=== PATIENT | male | born 1950 | race Caucasian/White ===

== ENCOUNTER 2016-12-10 23:04 | Emergency (ER) | payer MEDICAID ==
[~2016-12-10] VITALS: Ht 175.3 cm; Wt 77.1 kg
[2016-12-10 23:05] VITALS: BP 126/78; PULSE 76; RESP 22; TEMP 98.4; O2SAT 98
--- NOTE | 2016-12-10 23:07 | NUR ---
Patient to ER bed 3 to gown for evaluation. Side rails up. Report given to GONZALEZ CAMPBELL.
--- NOTE | 2016-12-10 23:12 | NUR ---
Patient states the started to have chest pressure radiating to left shoulder starting today with shortness of breath. Pain 8/10. Lungs are clear. No other complaints/injuries noted or per patient.
--- NOTE | 2016-12-10 23:37 | NUR ---
Dr. Payne at bedside
[2016-12-10] MEDS ORDERED: MORPHINE 4 MG/ML INJ. SYRINGE IVP ONE (23:45)
[2016-12-10] MEDS ORDERED: ASPIRIN 325 MG TABLET PO ONE (23:45)
[2016-12-10 23:50] LABS: HEMOGLOBIN 12.1 g/dL (14.0-18.0); MEAN CORPUSCULAR VOLUME 85 fL (79.0-98.0)
--- NOTE | 2016-12-10 23:50 | NUR ---
Note yris in EDM - 12/11/16 at 0141 by [email or web address] Patient states the started to have chest pressure radiating to left shoulder starting today with shortness of breath. Pain 02/28. Lungs are clear. No other complaints/injuries noted or per patient.
[2016-12-10 23:57] LABS: CALCIUM 9.1 mg/dL (8.4-11.0); CREATININE 1.13 mg/dL (0.55-1.30); POTASSIUM 3.8 mmol/L (3.5-5.1)
[2016-12-10 23:59] LABS: INR 1.1 (0.80-1.20)
[2016-12-11 00:03] LABS: ALBUMIN 4.2 g/dL (3.4-4.8); TOTAL BILIRUBIN 0.7 mg/dL (0.0-1.0); TOTAL PROTEIN, SERUM 7.9 g/dL (6.4-8.3)
[2016-12-11 00:06] LABS: HEMATOCRIT 34.9 % (36-54); MEAN CORPUSCULAR HEMOGLOBIN 30 pg (27-31); MEAN CORPUSCULAR HGB CONC 35 % (32-36); RED BLOOD CELL COUNT(AUTO) 4.11 MIL/uL (4.2-6.2); RED CELL DISTRIBUTION WIDTH 14.2 % (9.0-15.0); WHITE BLOOD COUNT (AUTO) 7.3 K/uL (4.8-10.8)
[2016-12-11] MEDS ORDERED: ONDANSETRON HCL 4 MG/2 ML VIAL IVP ONE (01:15)
[2016-12-11] MEDS ORDERED: HYDROmorphone 1 MG INJ. 1 MG/ML AMPUL IVP ONE (01:15)
[2016-12-11 01:21] LABS: PLATELET COUNT (AUTO) 73 K/uL (130-430)
[2016-12-11 01:22] LABS: BAND % (MANUAL) 5 % (0-6); BASOPHILS % (MANUAL) 0 % (0-2); EOSINOPHILS % (MANUAL) 1 % (0-7); LYMPHOCYTES % (MANUAL) 11 % (20-46); MONOCYTES % (MANUAL) 15 % (0-11)
[2016-12-11 02:09] LABS: BILIRUBIN,URINE NEGATIVE (NEGATIVE); CLARITY/URINE CLEAR (CLEAR); COLOR,URINE YELLOW (YELLOW); GLUCOSE,URINE NEGATIVE (NEGATIVE); KETONES,URINE NEGATIVE (NEGATIVE); LEUKOCYTE ESTERASE ,URINE NEGATIVE (NEGATIVE); NITRITE, URINE NEGATIVE (NEGATIVE); PROTEIN URINE TRACE (NEGATIVE); UROBILINOGEN,URINE 0.2 (0.2-1.0)
[2016-12-11 02:13] LABS: BLOOD, URINE TRACE (NEGATIVE)
[2016-12-11 02:20] LABS: BACTERIA,URINE MODERATE /HPF (None Seen); MUCUS,URINE 1+ /LPF (None Seen); RBC,URINE 0-3 /HPF (0-3); WBC,URINE 0-3 /HPF (0-3)
--- NOTE | 2016-12-11 03:01 | NUR ---
Patient resting quietly. No acute distress noted. Vital signs within normal range.
[2016-12-11 03:45] VITALS: BP 126/64; PULSE 82; RESP 18; TEMP 98.4; O2SAT 98
--- NOTE | 2016-12-11 03:45 | NUR ---
Patient given written and verbal discharge instructions and verbalizes understanding. ER MD discussed with patient the results and treatment provided. Patient in stable condition. ID arm band removed. IV catheter removed intact and dressing applied, no active bleeding. Rx of Prednisone and Percocet given. Patient educated on pain management and to follow up with PMD in 2 days. Pain Scale 0/10 Opportunity for questions provided and answered.
--- NOTE | 2016-12-11 03:45 | NUR ---
Note rosamariaone in EDM - 12/11/16 at 0353 by [email or web address] Patient given written and verbal discharge instructions and verbalizes understanding. ER discussed with patient the results and treatment provided. Patient in stable condition. ID arm band removed. IV catheter removed intact and dressing applied, no active bleeding. Rx of Prednison and Percocet given. Patient educated on pain management and to follow up with PMD in 2 days. Pain Scale 0/10 Opportunity for questions provided and answered.
== END 2016-12-11 03:45 | disposition home or self-care (01) ==
LOC: SED 23:04
DX: M25.512 Pain in left shoulder (principal); M79.89 Other specified soft tissue disorders; R10.31 Right lower quadrant pain; Z94.0 Kidney transplant status
CPT/HCPCS: 36415; 73030; 80053; 81000; 82550; 83605; 83880; 84484; 85007; 85027; 85379; 85610; 87086; 93005; 93971; 96374; 96375; 99285; J1170; J2270; J2405; 85025

== ENCOUNTER 2017-04-28 15:52 | Emergency (ER) | payer MEDICARE, MEDICAID ==
[~2017-04-28] VITALS: Ht 175.3 cm; Wt 77.1 kg
[~2017-04-28 15:52] MED LIST: AMLO5TAB4 PO; CEL250 PO; FERR-57 PO; MAGN400T10 PO; METO-442 PO; PRED1TAB PO; PRO40 PO; SULF1TAB48 PO; TACR1CAP PO; VITD2000 PO
[2017-04-28 15:55] VITALS: BP 132/78; PULSE 63; RESP 20; TEMP 97.8; O2SAT 97
--- NOTE | 2017-04-28 15:58 | NUR ---
Pt placed to ER chair, report given to ADRIAN Ba.
--- NOTE | 2017-04-28 16:10 | NUR ---
PRESENTS FOR RECHECK TO LEFT FINGER LACERATION ON SATURDAY. STITCHES PRESENT AND NO REDNESS, PAIN OR SWELLING NOTED.
--- NOTE | 2017-04-28 16:20 | NUR ---
CHRISTAL Akbar at bedside for exam and eval.
[2017-04-28 16:35] VITALS: BP 120/70; PULSE 78; RESP 16; TEMP 98; O2SAT 97
--- NOTE | 2017-04-28 16:35 | NUR ---
Patient given written and verbal discharge instructions and verbalizes understanding. ER MD discussed with patient the results and treatment provided. Patient in stable condition. ID arm band removed. No Rx given. Patient educated on pain management and to follow up with PMD. Pain Scale 0/10. Opportunity for questions provided and answered. pt discharged to private auto by ambulating.
== END 2017-04-28 16:35 | disposition home or self-care (01) ==
LOC: SED 15:52
DX: S61.213D Laceration without foreign body of left middle finger without damage to nail, subsequent encounter (principal); I10 Essential (primary) hypertension; Z79.899 Other long term (current) drug therapy; W26.0XXD Contact with knife, subsequent encounter; Y92.89 Other specified places as the place of occurrence of the external cause; Y99.8 Other external cause status
CPT/HCPCS: 99281

== ENCOUNTER 2017-05-05 15:15 | Emergency (ER) | payer MEDICARE, MEDICAID ==
[~2017-05-05] VITALS: Ht 175.3 cm; Wt 77.1 kg
[2017-05-05 15:30] VITALS: BP_SYST 120
[2017-05-05] MEDS ORDERED: BACITRACIN 1 GM OINT TP ONE ×2 (15:37→15:45)
[2017-05-05 15:52] VITALS: BP_SYST 120
== END 2017-05-05 15:52 | disposition home or self-care (01) ==
LOC: SED 15:15
DX: S61.211D Laceration without foreign body of left index finger without damage to nail, subsequent encounter (principal); I12.0 Hypertensive chronic kidney disease with stage 5 chronic kidney disease or end stage renal disease; N18.6 End stage renal disease; Z79.899 Other long term (current) drug therapy; Z94.0 Kidney transplant status; X58.XXXD Exposure to other specified factors, subsequent encounter
CPT/HCPCS: 99283

== ENCOUNTER 2018-07-10 12:30 | Inpatient (IN) | payer MEDICARE, MEDICAID ==
[~2018-07-10] VITALS: Ht 175.3 cm; Wt 84.4 kg
[2018-07-10 12:30] VITALS: BP_SYST 124
[2018-07-10 14:05] LABS: HEMATOCRIT 25.5 % (36-54); MEAN CORPUSCULAR HEMOGLOBIN 30 pg (27-31); MEAN CORPUSCULAR HGB CONC 35 % (32-36); MEAN CORPUSCULAR VOLUME 84 fL (79.0-98.0); PLATELET COUNT (AUTO) 97 K/uL (130-430); RED BLOOD CELL COUNT(AUTO) 3.03 MIL/uL (4.2-6.2); RED CELL DISTRIBUTION WIDTH 16.2 % (9.0-15.0); WHITE BLOOD COUNT (AUTO) 7.5 K/uL (4.8-10.8)
[2018-07-10 14:12] LABS: CALCIUM 7.2 mg/dL (8.4-11.0); CREATININE 1.57 mg/dL (0.55-1.30); POTASSIUM 3.7 mmol/L (3.5-5.1)
[2018-07-10 14:20] LABS: ALBUMIN 3.1 g/dL (3.4-4.8); TOTAL BILIRUBIN 0.7 mg/dL (0.0-1.0)
[2018-07-10 14:25] LABS: INR 3.9 (0.80-1.20); PROTHROMBIN TIME 37.6 SECS (9.5-12.5)
[2018-07-10 14:47] LABS: BAND % (MANUAL) 7 % (0-6); BASOPHILS % (MANUAL) 0 % (0-2); EOSINOPHILS % (MANUAL) 0 % (0-7); LYMPHOCYTES % (MANUAL) 5 % (20-46); MONOCYTES % (MANUAL) 29 % (0-11)
[2018-07-10 14:48] LABS: METAMYELOCYTES % 3 % (0-0)
[2018-07-10] MEDS ORDERED: LIDOCAINE JELLY 5 ML TUBE MM ONE (15:15)
[2018-07-10] MEDS ORDERED: fentaNYL CITRATE/PF 100 MCG/2 ML AMP IVP ONE (15:15)
[2018-07-10 16:00] VITALS: BP_SYST 113
[2018-07-10] MEDS ORDERED: BENZ-16 PO (16:11)
[2018-07-10] MEDS ORDERED: SEN30 PO (16:11)
[2018-07-10] MEDS ORDERED: COU5 PO (16:11)
[2018-07-10] MEDS ORDERED: FLEC50TA2 PO (16:11)
[2018-07-10] MEDS ORDERED: POTA10TA15 PO (16:11)
[2018-07-10] MEDS ORDERED: SPIR25TA6 PO (16:11)
[2018-07-10] MEDS ORDERED: MIRT15TA7 PO (16:11)
[2018-07-10] MEDS ORDERED: CEL250 PO (16:17)
[2018-07-10] MEDS ORDERED: MYCO500T PO (16:17)
[2018-07-10 16:46] LABS: BILIRUBIN,URINE NEGATIVE (NEGATIVE); CLARITY/URINE CLEAR (CLEAR); COLOR,URINE YELLOW (YELLOW); GLUCOSE,URINE NEGATIVE (NEGATIVE); KETONES,URINE NEGATIVE (NEGATIVE); LEUKOCYTE ESTERASE ,URINE NEGATIVE (NEGATIVE); NITRITE, URINE NEGATIVE (NEGATIVE); PH,URINE 5.5 (5.0-8.0); PROTEIN URINE TRACE (NEGATIVE); UROBILINOGEN,URINE 0.2 (0.2-1.0)
[2018-07-10 16:47] LABS: BLOOD, URINE TRACE (NEGATIVE)
[2018-07-10 16:48] VITALS: BP_SYST 113
[2018-07-10 16:53] LABS: WBC,URINE 0-3 /HPF (0-3)
[2018-07-10 16:54] LABS: BACTERIA,URINE MODERATE /HPF (None Seen)
[2018-07-10] MEDS: NACL 0.9% 1,000 ML IV SCH (17:05)
[2018-07-10] MEDS ORDERED: FUROSEMIDE 20 MG/2 ML VIAL IVP ONE (18:30)
[2018-07-10 19:20] LABS: CALCIUM 7.1 mg/dL (8.4-11.0); CREATININE 1.6 mg/dL (0.55-1.30); POTASSIUM 3.7 mmol/L (3.5-5.1)
[2018-07-10] MEDS: LORazepam 1 MG TABLET PO PRN (20:24)
[2018-07-10 20:30] VITALS: BP_SYST 104
[2018-07-10] MEDS: BENZONATATE 100 MG CAPSULE (TESSALON) PO SCH (21:38)
[2018-07-10] MEDS: MIRTAZAPINE 15 MG TABLET PO SCH (21:38)
[2018-07-10] MEDS: MAGNESIUM OXIDE 400 MG TABLET PO SCH (21:38)
[2018-07-10] MEDS: POTASSIUM CHLORIDE 10 MEQ TAB.PRT.SR PO SCH (21:39)
[2018-07-10] MEDS: FUROSEMIDE 20 MG/2 ML VIAL IVP SCH (21:39)
[2018-07-10] MEDS: MYCOPHENOLATE MOFETIL 250 MG CAPSULE PO SCH (21:39)
[2018-07-10] MEDS: TACROLIMUS ANHYDROUS 1 MG CAPSULE (PROGRAF) PO SCH (21:40)
[2018-07-10 22:00] VITALS: BP_SYST 104
[2018-07-10] MEDS: ALBUTEROL SULFATE 0.083% 2.5 MG/3 ML VIAL.NEB INH PRN (22:59)
[2018-07-10 23:09] VITALS: BP_SYST 119
[2018-07-10] MEDS: TEMAZEPAM 15 MG CAPSULE PO PRN (23:20)
[2018-07-10] MEDS: ACETAMINOPHEN 325 MG TABLET PO PRN (23:20)
[2018-07-11] MEDS: ALBUTEROL SULFATE 0.083% 2.5 MG/3 ML VIAL.NEB INH PRN ×5 (02:17→19:48)
[2018-07-11] MEDS: MORPHINE 4 MG/ML INJ. SYRINGE IVP PRN (03:06)
[2018-07-11] MEDS: FUROSEMIDE 20 MG/2 ML VIAL IVP SCH ×3 (04:47→20:00)
[2018-07-11 04:54] VITALS: BP_SYST 132
[2018-07-11] MEDS: ACETAMINOPHEN 325 MG TABLET PO PRN ×2 (05:03→09:58)
[2018-07-11] MEDS: predniSONE 1 MG TABLET PO SCH (06:35)
[2018-07-11 07:44] LABS: HEMATOCRIT 26.8 % (36-54); HEMOGLOBIN 8.9 g/dL (14.0-18.0); MEAN CORPUSCULAR HEMOGLOBIN 29 pg (27-31); MEAN CORPUSCULAR HGB CONC 33 % (32-36); MEAN CORPUSCULAR VOLUME 86 fL (79.0-98.0); PLATELET COUNT (AUTO) 90 K/uL (130-430); RED CELL DISTRIBUTION WIDTH 15.8 % (9.0-15.0)
[2018-07-11 07:48] LABS: ALBUMIN 2.8 g/dL (3.4-4.8); CREATININE 1.43 mg/dL (0.55-1.30); POTASSIUM 3.7 mmol/L (3.5-5.1)
[2018-07-11 07:51] LABS: CALCIUM 6.9 mg/dL (8.4-11.0)
[2018-07-11] MEDS: TACROLIMUS ANHYDROUS 1 MG CAPSULE (PROGRAF) PO SCH ×2 (08:02→22:03)
[2018-07-11] MEDS: MYCOPHENOLATE MOFETIL 250 MG CAPSULE PO SCH ×2 (08:03→17:02)
[2018-07-11] MEDS: amLODIPine BESYLATE 5 MG TABLET PO SCH (08:05)
[2018-07-11] MEDS: MAGNESIUM OXIDE 400 MG TABLET PO SCH ×2 (08:05→20:46)
[2018-07-11] MEDS: CINACALCET HCL 30 MG TABLET PO SCH (08:05)
[2018-07-11] MEDS: METOPROLOL TARTRATE 50 MG TABLET PO SCH (08:06)
[2018-07-11] MEDS: POTASSIUM CHLORIDE 10 MEQ TAB.PRT.SR PO SCH ×2 (08:06→20:46)
[2018-07-11] MEDS: BENZONATATE 100 MG CAPSULE (TESSALON) PO SCH ×3 (08:07→20:46)
[2018-07-11] MEDS: SPIRONOLACTONE 25 MG TABLET (ALDACTONE) PO SCH (08:07)
[2018-07-11] MEDS: FLECAINIDE ACETATE 50 MG TABLET (TAMBOCOR) PO SCH (08:18)
[2018-07-11] MEDS: NACL 0.9% 1,000 ML IV SCH (08:19)
[2018-07-11 08:20] LABS: WHITE BLOOD COUNT (AUTO) 11.4 K/uL (4.8-10.8)
[2018-07-11] MEDS ORDERED: PANTOPRAZOLE SODIUM 40 MG TAB PO SCH (09:00)
[2018-07-11 10:14] LABS: ATYPICAL LYMPHOCYTES % 0 % (0-0); BAND % (MANUAL) 15 % (0-6); BASOPHILS % (MANUAL) 0 % (0-2); EOSINOPHILS % (MANUAL) 0 % (0-7); LYMPHOCYTES % (MANUAL) 11 % (20-46); MONOCYTES % (MANUAL) 26 % (0-11)
[2018-07-11 20:00] VITALS: BP_SYST 142
[2018-07-11] MEDS ORDERED: IPRATROPIUM/ALBUTEROL SULFATE 3 ML AMPUL.NEB (DUONEB) INH PRN (20:00)
[2018-07-11] MEDS ORDERED: FUROSEMIDE 20 MG/2 ML VIAL IVP ONE (20:00)
[2018-07-11] MEDS ORDERED: cefTRIAXone 1 GM in D5W 50 ML IV SCH ×2 (20:00→21:00)
[2018-07-11] MEDS ORDERED: MAGNESIUM SULFATE 50 ML IV ONE (20:00)
[2018-07-11] MEDS ORDERED: AZITHROMYCIN 500 MG in NS 250 ML IV SCH (20:15)
[2018-07-11] MEDS ORDERED: methylPREDNISolone SOD SUCC 40 MG/ML VIAL IVP SCH (20:30)
[2018-07-11] MEDS ORDERED: FUROSEMIDE 20 MG/2 ML VIAL IVP SCH (20:30)
[2018-07-11] MEDS ORDERED: MAGNESIUM SULFATE 50 ML IV SCH (20:30)
[2018-07-11] MEDS ORDERED: cefTRIAXone 1 GM VIAL ONE (20:39)
[2018-07-11] MEDS ORDERED: AZITHROMYCIN 500 MG/VIAL (ZITHROMAX) IV ONE (20:40)
[2018-07-11] MEDS ORDERED: FUROSEMIDE 40 MG/4 ML VIAL IVP SCH (20:45)
[2018-07-11] MEDS: MIRTAZAPINE 15 MG TABLET PO SCH (20:46)
[2018-07-11] MEDS: AZITHROMYCIN 500 MG in NS 250 ML IV SCH (21:00)
[2018-07-11] MEDS: TEMAZEPAM 15 MG CAPSULE PO PRN (22:16)
[2018-07-12] VITALS (18 sets, daily range): BP systolic 109–151
[2018-07-12] MEDS: IPRATROPIUM/ALBUTEROL SULFATE 3 ML AMPUL.NEB (DUONEB) INH PRN ×2 (00:59→21:27)
[2018-07-12] MEDS: LORazepam 1 MG TABLET PO PRN (01:14)
[2018-07-12] MEDS: FUROSEMIDE 20 MG/2 ML VIAL IVP SCH (02:54)
[2018-07-12] MEDS: LORazepam 2 MG/ML VIAL IVP PRN (06:00)
[2018-07-12] MEDS: predniSONE 1 MG TABLET PO SCH (06:00)
[2018-07-12] MEDS: methylPREDNISolone SOD SUCC 40 MG/ML VIAL IVP SCH ×3 (08:18→21:16)
[2018-07-12 08:52] LABS: CALCIUM 7.4 mg/dL (8.4-11.0); CREATININE 1.59 mg/dL (0.55-1.30); POTASSIUM 4.3 mmol/L (3.5-5.1)
[2018-07-12 08:54] LABS: HEMATOCRIT 28.6 % (36-54); HEMOGLOBIN 9.2 g/dL (14.0-18.0); LYMPHOCYTES # (AUTO) 0.4 K/uL (1.0-5.5); LYMPHOCYTES % (AUTO) 2.6 % (20.5-51.5); MEAN CORPUSCULAR HEMOGLOBIN 28 pg (27-31); MEAN CORPUSCULAR HGB CONC 32 % (32-36); MEAN CORPUSCULAR VOLUME 87 fL (79.0-98.0); MONOCYTES # (AUTO) 0.7 K/uL (0.0-1.0); MONOCYTES % (AUTO) 4.8 % (1.7-9.3); NEUTROPHILS # (AUTO) 14.2 K/uL (1.8-7.7); PLATELET COUNT (AUTO) 92 K/uL (130-430); RED CELL DISTRIBUTION WIDTH 16.2 % (9.0-15.0); WHITE BLOOD COUNT (AUTO) 15.3 K/uL (4.8-10.8)
[2018-07-12] MEDS: SPIRONOLACTONE 25 MG TABLET (ALDACTONE) PO SCH (09:00)
[2018-07-12] MEDS ORDERED: NACL 0.9% 1,000 ML IV SCH (09:00)
[2018-07-12 09:14] LABS: PROTHROMBIN TIME 55.3 SECS (9.5-12.5)
[2018-07-12 09:15] LABS: INR 5.8 (0.80-1.20)
[2018-07-12] MEDS ORDERED: PANTOPRAZOLE SODIUM 40 MG/VIAL (PROTONIX) IVP ONE (09:15)
[2018-07-12] MEDS: CEFEPIME 1 GM in D5W 50 ML IV SCH ×2 (10:01→10:32)
[2018-07-12] MEDS ORDERED: SODIUM BICARBONATE 8.4% JECT 50 MEQ/50 ML SYRINGE ONE (10:28)
[2018-07-12] MEDS ORDERED: SODIUM BICARBONATE 8.4% JECT 50 MEQ/50 ML SYRINGE IVP ONE (10:30)
[2018-07-12] MEDS: PANTOPRAZOLE SODIUM 40 MG/VIAL (PROTONIX) IVP SCH (10:35)
[2018-07-12] MEDS: FLECAINIDE ACETATE 50 MG TABLET (TAMBOCOR) PO SCH (11:14)
[2018-07-12] MEDS: MAGNESIUM OXIDE 400 MG TABLET PO SCH ×2 (11:14→21:16)
[2018-07-12] MEDS: BENZONATATE 100 MG CAPSULE (TESSALON) PO SCH ×3 (11:14→21:16)
[2018-07-12] MEDS: POTASSIUM CHLORIDE 10 MEQ TAB.PRT.SR PO SCH ×2 (11:14→21:16)
[2018-07-12] MEDS: METOPROLOL TARTRATE 50 MG TABLET PO SCH (11:15)
[2018-07-12] MEDS: amLODIPine BESYLATE 5 MG TABLET PO SCH (11:15)
[2018-07-12] MEDS: MYCOPHENOLATE MOFETIL 250 MG CAPSULE PO SCH (11:18)
[2018-07-12] MEDS ORDERED: SODIUM BICARBONATE IV SCH (11:30)
[2018-07-12] MEDS ORDERED: NACL 0.45% IV SCH (11:30)
[2018-07-12 11:58] LABS: NEUTROPHILS % (AUTO) 92.6 % (40.0-70.0)
[2018-07-12] MEDS: TACROLIMUS ANHYDROUS 1 MG CAPSULE (PROGRAF) PO SCH ×2 (12:02→21:18)
[2018-07-12] MEDS: CINACALCET HCL 30 MG TABLET PO SCH (12:02)
[2018-07-12] MEDS ORDERED: BUMEX 1 MG/4 ML VIAL IVP ONE (12:30)
[2018-07-12 13:11] LABS: CREATININE 1.44 mg/dL (0.55-1.30); POTASSIUM 3.3 mmol/L (3.5-5.1)
[2018-07-12 13:16] LABS: CALCIUM 6.3 mg/dL (8.4-11.0)
[2018-07-12] MEDS ORDERED: CALCIUM GLUCONATE 1 GM/10 ML VIAL ONE (13:26)
[2018-07-12] MEDS: SODIUM BICARBONATE IV SCH (13:26)
[2018-07-12] MEDS: NACL 0.45% IV SCH (13:26)
[2018-07-12] MEDS ORDERED: CALCIUM GLUCONATE 1 GM in NS 100 ML IV ONE (14:15)
[2018-07-12] MEDS: AZITHROMYCIN 500 MG in NS 250 ML IV SCH (21:16)
[2018-07-12] MEDS: MIRTAZAPINE 15 MG TABLET PO SCH (21:16)
[2018-07-12] MEDS: BUMETANIDE 0.25 MG/ML; 10 ML VIAL IVP SCH (21:33)
[2018-07-13] VITALS (25 sets, daily range): BP systolic 104–136
[2018-07-13] MEDS: LORazepam 2 MG/ML VIAL IVP PRN (01:19)
[2018-07-13] MEDS: IPRATROPIUM/ALBUTEROL SULFATE 3 ML AMPUL.NEB (DUONEB) INH PRN ×3 (01:23→23:21)
[2018-07-13] MEDS: MORPHINE 4 MG/ML INJ. SYRINGE IVP PRN ×2 (04:32→09:24)
[2018-07-13 08:15] LABS: ALBUMIN 2.8 g/dL (3.4-4.8); CALCIUM 7.5 mg/dL (8.4-11.0); CREATININE 1.57 mg/dL (0.55-1.30); POTASSIUM 3.8 mmol/L (3.5-5.1); TOTAL BILIRUBIN 0.7 mg/dL (0.0-1.0)
[2018-07-13] MEDS: methylPREDNISolone SOD SUCC 40 MG/ML VIAL IVP SCH ×2 (08:38→20:38)
[2018-07-13] MEDS: CEFEPIME 1 GM in D5W 50 ML IV SCH ×2 (08:38→20:37)
[2018-07-13] MEDS: PANTOPRAZOLE SODIUM 40 MG/VIAL (PROTONIX) IVP SCH (08:38)
[2018-07-13] MEDS: BUMETANIDE 0.25 MG/ML; 10 ML VIAL IVP SCH ×2 (08:40→20:41)
[2018-07-13] MEDS: FLECAINIDE ACETATE 50 MG TABLET (TAMBOCOR) PO SCH (08:41)
[2018-07-13] MEDS: MAGNESIUM OXIDE 400 MG TABLET PO SCH ×2 (08:41→20:40)
[2018-07-13] MEDS: SPIRONOLACTONE 25 MG TABLET (ALDACTONE) PO SCH (08:41)
[2018-07-13] MEDS: BENZONATATE 100 MG CAPSULE (TESSALON) PO SCH ×3 (08:42→20:39)
[2018-07-13] MEDS: amLODIPine BESYLATE 5 MG TABLET PO SCH (08:42)
[2018-07-13] MEDS: METOPROLOL TARTRATE 50 MG TABLET PO SCH (08:42)
[2018-07-13] MEDS: POTASSIUM CHLORIDE 10 MEQ TAB.PRT.SR PO SCH ×2 (08:44→20:39)
[2018-07-13 08:53] LABS: BASOPHILS % (AUTO) 0.2 % (0.0-2.0); EOSINOPHILS % (AUTO) 0.1 % (0.0-4.0); HEMATOCRIT 23.7 % (36-54); HEMOGLOBIN 8.5 g/dL (14.0-18.0); LYMPHOCYTES # (AUTO) 0.2 K/uL (1.0-5.5); LYMPHOCYTES % (AUTO) 1.8 % (20.5-51.5); MEAN CORPUSCULAR HEMOGLOBIN 30 pg (27-31); MEAN CORPUSCULAR HGB CONC 36 % (32-36); MEAN CORPUSCULAR VOLUME 85 fL (79.0-98.0); MONOCYTES # (AUTO) 2.3 K/uL (0.0-1.0); MONOCYTES % (AUTO) 18.6 % (1.7-9.3); NEUTROPHILS # (AUTO) 9.8 K/uL (1.8-7.7); PLATELET COUNT (AUTO) 103 K/uL (130-430); RED BLOOD CELL COUNT(AUTO) 2.79 MIL/uL (4.2-6.2); RED CELL DISTRIBUTION WIDTH 16.4 % (9.0-15.0); WHITE BLOOD COUNT (AUTO) 12.3 K/uL (4.8-10.8)
[2018-07-13] MEDS: CINACALCET HCL 30 MG TABLET PO SCH (09:12)
[2018-07-13] MEDS: TACROLIMUS ANHYDROUS 1 MG CAPSULE (PROGRAF) PO SCH ×2 (09:13→20:39)
[2018-07-13] MEDS: SODIUM BICARBONATE IV SCH (09:13)
[2018-07-13] MEDS: NACL 0.45% IV SCH (09:13)
[2018-07-13 12:13] LABS: NEUTROPHILS % (AUTO) 79.3 % (40.0-70.0)
[2018-07-13] MEDS: AZITHROMYCIN 500 MG in NS 250 ML IV SCH (20:37)
[2018-07-13] MEDS: MIRTAZAPINE 15 MG TABLET PO SCH (20:39)
[2018-07-13 23:19] LABS: BILIRUBIN,URINE NEGATIVE (NEGATIVE); BLOOD, URINE 3+ (NEGATIVE); CLARITY/URINE CLEAR (CLEAR); COLOR,URINE YELLOW (YELLOW); GLUCOSE,URINE NEGATIVE (NEGATIVE); KETONES,URINE NEGATIVE (NEGATIVE); LEUKOCYTE ESTERASE ,URINE TRACE (NEGATIVE); NITRITE, URINE NEGATIVE (NEGATIVE); PH,URINE 5.5 (5.0-8.0); PROTEIN URINE 1+ (NEGATIVE); UROBILINOGEN,URINE 0.2 (0.2-1.0)
[2018-07-13 23:26] LABS: RBC,URINE >100 /HPF (0-3)
[2018-07-13 23:27] LABS: BACTERIA,URINE FEW /HPF (None Seen)
[2018-07-13] MEDS: ACETAMINOPHEN 325 MG TABLET PO PRN (23:41)
[2018-07-13] MEDS: TEMAZEPAM 15 MG CAPSULE PO PRN (23:41)
[2018-07-14] VITALS (24 sets, daily range): BP systolic 97–127
[2018-07-14] MEDS: NACL 0.45% IV SCH (05:34)
[2018-07-14] MEDS: SODIUM BICARBONATE IV SCH (05:34)
[2018-07-14 07:03] LABS: EOSINOPHILS % (AUTO) 0.1 % (0.0-4.0); HEMOGLOBIN 8.5 g/dL (14.0-18.0); LYMPHOCYTES # (AUTO) 0.3 K/uL (1.0-5.5); LYMPHOCYTES % (AUTO) 3.1 % (20.5-51.5); MEAN CORPUSCULAR HEMOGLOBIN 29 pg (27-31); MEAN CORPUSCULAR HGB CONC 34 % (32-36); MEAN CORPUSCULAR VOLUME 87 fL (79.0-98.0); MONOCYTES # (AUTO) 0.2 K/uL (0.0-1.0); MONOCYTES % (AUTO) 2.1 % (1.7-9.3); NEUTROPHILS % (AUTO) 94.7 % (40.0-70.0); PLATELET COUNT (AUTO) 111 K/uL (130-430); RED BLOOD CELL COUNT(AUTO) 2.88 MIL/uL (4.2-6.2); RED CELL DISTRIBUTION WIDTH 16.4 % (9.0-15.0); WHITE BLOOD COUNT (AUTO) 8.5 K/uL (4.8-10.8)
[2018-07-14 07:46] LABS: CREATININE 1.55 mg/dL (0.55-1.30); POTASSIUM 4.2 mmol/L (3.5-5.1)
[2018-07-14] MEDS: BENZONATATE 100 MG CAPSULE (TESSALON) PO SCH ×3 (08:12→21:33)
[2018-07-14] MEDS: FLECAINIDE ACETATE 50 MG TABLET (TAMBOCOR) PO SCH (08:12)
[2018-07-14] MEDS: METOPROLOL TARTRATE 50 MG TABLET PO SCH (08:13)
[2018-07-14] MEDS: amLODIPine BESYLATE 5 MG TABLET PO SCH (08:13)
[2018-07-14] MEDS: POTASSIUM CHLORIDE 10 MEQ TAB.PRT.SR PO SCH ×2 (08:14→21:34)
[2018-07-14] MEDS: SPIRONOLACTONE 25 MG TABLET (ALDACTONE) PO SCH (08:14)
[2018-07-14] MEDS: PANTOPRAZOLE SODIUM 40 MG/VIAL (PROTONIX) IVP SCH (08:15)
[2018-07-14] MEDS: MAGNESIUM OXIDE 400 MG TABLET PO SCH ×2 (08:15→21:33)
[2018-07-14] MEDS: methylPREDNISolone SOD SUCC 40 MG/ML VIAL IVP SCH ×2 (08:15→21:34)
[2018-07-14 08:18] LABS: CALCIUM 7.2 mg/dL (8.4-11.0)
[2018-07-14 08:19] LABS: ALBUMIN 2.7 g/dL (3.4-4.8); TOTAL BILIRUBIN 0.7 mg/dL (0.0-1.0)
[2018-07-14] MEDS: CEFEPIME 1 GM in D5W 50 ML IV SCH ×2 (08:19→21:32)
[2018-07-14] MEDS: CINACALCET HCL 30 MG TABLET PO SCH (08:19)
[2018-07-14] MEDS: TACROLIMUS ANHYDROUS 1 MG CAPSULE (PROGRAF) PO SCH ×2 (08:19→21:35)
[2018-07-14] MEDS: BUMETANIDE 0.25 MG/ML; 10 ML VIAL IVP SCH (08:41)
[2018-07-14] MEDS: IPRATROPIUM/ALBUTEROL SULFATE 3 ML AMPUL.NEB (DUONEB) INH PRN ×2 (09:56→20:56)
[2018-07-14 10:50] LABS: PROTHROMBIN TIME 57.1 SECS (9.5-12.5)
[2018-07-14] MEDS ORDERED: PHYTONADIONE 5 MG TABLET PO ONE (13:30)
[2018-07-14] MEDS: AZITHROMYCIN 500 MG in NS 250 ML IV SCH (21:32)
[2018-07-14] MEDS: TEMAZEPAM 15 MG CAPSULE PO PRN (21:33)
[2018-07-14] MEDS: MIRTAZAPINE 15 MG TABLET PO SCH (21:33)
[2018-07-14] MEDS: BUMEX 1 MG/4 ML VIAL IVP SCH (21:35)
[2018-07-14] MEDS: ACETAMINOPHEN 325 MG TABLET PO PRN (22:47)
[2018-07-15] VITALS (18 sets, daily range): BP systolic 103–150
[2018-07-15] MEDS: LORazepam 2 MG/ML VIAL IVP PRN (02:16)
[2018-07-15] MEDS: SODIUM BICARBONATE IV SCH (04:44)
[2018-07-15] MEDS: NACL 0.45% IV SCH (04:44)
[2018-07-15 06:49] LABS: INR 1.7 (0.80-1.20)
[2018-07-15] MEDS: CEFEPIME 1 GM in D5W 50 ML IV SCH ×2 (08:31→21:56)
[2018-07-15] MEDS: amLODIPine BESYLATE 5 MG TABLET PO SCH (08:32)
[2018-07-15] MEDS: FLECAINIDE ACETATE 50 MG TABLET (TAMBOCOR) PO SCH (08:32)
[2018-07-15] MEDS: BENZONATATE 100 MG CAPSULE (TESSALON) PO SCH ×3 (08:32→22:00)
[2018-07-15] MEDS: METOPROLOL TARTRATE 50 MG TABLET PO SCH (08:32)
[2018-07-15] MEDS: PANTOPRAZOLE SODIUM 40 MG/VIAL (PROTONIX) IVP SCH (08:33)
[2018-07-15] MEDS: SPIRONOLACTONE 25 MG TABLET (ALDACTONE) PO SCH (08:33)
[2018-07-15] MEDS: MAGNESIUM OXIDE 400 MG TABLET PO SCH ×2 (08:33→22:00)
[2018-07-15] MEDS: methylPREDNISolone SOD SUCC 40 MG/ML VIAL IVP SCH ×2 (08:33→22:04)
[2018-07-15] MEDS: TACROLIMUS ANHYDROUS 1 MG CAPSULE (PROGRAF) PO SCH ×2 (08:33→21:00)
[2018-07-15] MEDS: POTASSIUM CHLORIDE 10 MEQ TAB.PRT.SR PO SCH ×2 (08:33→21:59)
[2018-07-15 08:34] LABS: CALCIUM 7.6 mg/dL (8.4-11.0); CREATININE 1.51 mg/dL (0.55-1.30); POTASSIUM 4.2 mmol/L (3.5-5.1)
[2018-07-15] MEDS: BUMEX 1 MG/4 ML VIAL IVP SCH ×2 (08:34→22:05)
[2018-07-15] MEDS: CINACALCET HCL 30 MG TABLET PO SCH (08:34)
[2018-07-15 08:38] LABS: ALBUMIN 2.9 g/dL (3.4-4.8); TOTAL BILIRUBIN 0.8 mg/dL (0.0-1.0)
[2018-07-15] MEDS: SULFAMETHOXAZOLE/TRIMETHOPR DS 1 TABLET PO SCH ×2 (10:16→21:59)
[2018-07-15] MEDS: IPRATROPIUM/ALBUTEROL SULFATE 3 ML AMPUL.NEB (DUONEB) INH PRN ×2 (15:17→19:27)
[2018-07-15] MEDS: MIRTAZAPINE 15 MG TABLET PO SCH (22:00)
[2018-07-15] MEDS: TEMAZEPAM 15 MG CAPSULE PO PRN (22:02)
[2018-07-15] MEDS: MORPHINE 4 MG/ML INJ. SYRINGE IVP PRN (22:08)
[2018-07-16] MEDS: NACL 0.45% IV SCH ×2 (02:07→05:33)
[2018-07-16] MEDS: SODIUM BICARBONATE IV SCH ×2 (02:07→05:33)
[2018-07-16 08:00] VITALS: BP_SYST 157
[2018-07-16 08:06] LABS: TACROLIMUS (FK506) 4.5 ng/mL (2.0-20.0)
[2018-07-16] MEDS: IPRATROPIUM/ALBUTEROL SULFATE 3 ML AMPUL.NEB (DUONEB) INH PRN ×2 (08:29→13:31)
[2018-07-16] MEDS: FLECAINIDE ACETATE 50 MG TABLET (TAMBOCOR) PO SCH (09:00)
[2018-07-16] MEDS: TACROLIMUS ANHYDROUS 1 MG CAPSULE (PROGRAF) PO SCH ×3 (09:00→20:47)
[2018-07-16] MEDS: CEFEPIME 1 GM in D5W 50 ML IV SCH ×2 (09:45→20:43)
[2018-07-16] MEDS: BUMEX 1 MG/4 ML VIAL IVP SCH ×2 (09:46→20:50)
[2018-07-16] MEDS: PANTOPRAZOLE SODIUM 40 MG/VIAL (PROTONIX) IVP SCH (09:47)
[2018-07-16] MEDS: methylPREDNISolone SOD SUCC 40 MG/ML VIAL IVP SCH ×2 (09:48→20:50)
[2018-07-16] MEDS: CINACALCET HCL 30 MG TABLET PO SCH (09:49)
[2018-07-16] MEDS: BENZONATATE 100 MG CAPSULE (TESSALON) PO SCH ×3 (09:49→20:46)
[2018-07-16] MEDS: guaiFENesin ER 600 MG TAB PO SCH ×2 (09:49→20:46)
[2018-07-16] MEDS: MAGNESIUM OXIDE 400 MG TABLET PO SCH ×2 (09:49→20:46)
[2018-07-16] MEDS: SULFAMETHOXAZOLE/TRIMETHOPR DS 1 TABLET PO SCH ×2 (09:49→20:46)
[2018-07-16] MEDS: SPIRONOLACTONE 25 MG TABLET (ALDACTONE) PO SCH (09:50)
[2018-07-16] MEDS: POTASSIUM CHLORIDE 10 MEQ TAB.PRT.SR PO SCH ×2 (09:50→20:45)
[2018-07-16] MEDS: METOPROLOL TARTRATE 50 MG TABLET PO SCH (09:51)
[2018-07-16] MEDS: amLODIPine BESYLATE 5 MG TABLET PO SCH (09:51)
[2018-07-16 12:00] VITALS: BP_SYST 115
[2018-07-16 12:35] LABS: INR 1.3 (0.80-1.20); PROTHROMBIN TIME 13.3 SECS (9.5-12.5)
[2018-07-16 16:42] VITALS: BP_SYST 122
[2018-07-16] MEDS: WARFARIN SODIUM 1 MG TABLET PO SCH (17:21)
[2018-07-16 20:00] VITALS: BP_SYST 129
[2018-07-16] MEDS: MIRTAZAPINE 15 MG TABLET PO SCH (20:45)
[2018-07-16] MEDS: TEMAZEPAM 15 MG CAPSULE PO PRN (22:30)
[2018-07-16 23:55] VITALS: BP_SYST 115
[2018-07-17 06:49] LABS: BASOPHILS % (AUTO) 0.1 % (0.0-2.0); HEMOGLOBIN 8.3 g/dL (14.0-18.0); LYMPHOCYTES # (AUTO) 0.2 K/uL (1.0-5.5); LYMPHOCYTES % (AUTO) 2.6 % (20.5-51.5); MEAN CORPUSCULAR HEMOGLOBIN 30 pg (27-31); MEAN CORPUSCULAR HGB CONC 34 % (32-36); MEAN CORPUSCULAR VOLUME 87 fL (79.0-98.0); MONOCYTES # (AUTO) 0.8 K/uL (0.0-1.0); MONOCYTES % (AUTO) 8.3 % (1.7-9.3); NEUTROPHILS # (AUTO) 8.5 K/uL (1.8-7.7); PLATELET COUNT (AUTO) 90 K/uL (130-430); RED BLOOD CELL COUNT(AUTO) 2.77 MIL/uL (4.2-6.2); RED CELL DISTRIBUTION WIDTH 16.5 % (9.0-15.0); WHITE BLOOD COUNT (AUTO) 9.5 K/uL (4.8-10.8)
[2018-07-17 06:54] LABS: INR 1.5 (0.80-1.20); PROTHROMBIN TIME 14.7 SECS (9.5-12.5)
[2018-07-17 07:00] LABS: ALBUMIN 2.7 g/dL (3.4-4.8); CALCIUM 7.7 mg/dL (8.4-11.0); CREATININE 1.68 mg/dL (0.55-1.30); POTASSIUM 5.1 mmol/L (3.5-5.1); TOTAL BILIRUBIN 0.6 mg/dL (0.0-1.0)
[2018-07-17] MEDS: SODIUM BICARBONATE IV SCH (07:27)
[2018-07-17] MEDS: NACL 0.45% IV SCH (07:27)
[2018-07-17 08:00] VITALS: BP_SYST 150
[2018-07-17] MEDS: CEFEPIME 1 GM in D5W 50 ML IV SCH ×2 (09:02→21:17)
[2018-07-17] MEDS: MAGNESIUM OXIDE 400 MG TABLET PO SCH ×2 (09:04→21:20)
[2018-07-17] MEDS: methylPREDNISolone SOD SUCC 40 MG/ML VIAL IVP SCH ×2 (09:04→21:17)
[2018-07-17] MEDS: BUMEX 1 MG/4 ML VIAL IVP SCH (09:04)
[2018-07-17] MEDS: POTASSIUM CHLORIDE 10 MEQ TAB.PRT.SR PO SCH ×2 (09:04→21:21)
[2018-07-17] MEDS: BENZONATATE 100 MG CAPSULE (TESSALON) PO SCH ×3 (09:04→21:20)
[2018-07-17] MEDS: PANTOPRAZOLE SODIUM 40 MG/VIAL (PROTONIX) IVP SCH (09:04)
[2018-07-17] MEDS: CINACALCET HCL 30 MG TABLET PO SCH (09:04)
[2018-07-17] MEDS: guaiFENesin ER 600 MG TAB PO SCH ×2 (09:04→21:21)
[2018-07-17] MEDS: amLODIPine BESYLATE 5 MG TABLET PO SCH (09:05)
[2018-07-17] MEDS: SULFAMETHOXAZOLE/TRIMETHOPR DS 1 TABLET PO SCH ×2 (09:05→21:20)
[2018-07-17] MEDS: FLECAINIDE ACETATE 50 MG TABLET (TAMBOCOR) PO SCH (09:06)
[2018-07-17] MEDS: SPIRONOLACTONE 25 MG TABLET (ALDACTONE) PO SCH (09:06)
[2018-07-17] MEDS: TACROLIMUS ANHYDROUS 1 MG CAPSULE (PROGRAF) PO SCH ×2 (09:06→21:21)
[2018-07-17] MEDS: METOPROLOL TARTRATE 50 MG TABLET PO SCH (09:08)
[2018-07-17] MEDS: IPRATROPIUM/ALBUTEROL SULFATE 3 ML AMPUL.NEB (DUONEB) INH PRN ×2 (10:12→20:44)
[2018-07-17 10:56] VITALS: BP_SYST 129
[2018-07-17 16:21] VITALS: BP_SYST 119
[2018-07-17] MEDS: WARFARIN SODIUM 1 MG TABLET PO SCH (17:15)
[2018-07-17 20:00] VITALS: BP_SYST 117
[2018-07-17] MEDS: MIRTAZAPINE 15 MG TABLET PO SCH (21:20)
[2018-07-17] MEDS: MYCOPHENOLATE MOFETIL 250 MG CAPSULE PO SCH (21:20)
[2018-07-17] MEDS: TEMAZEPAM 15 MG CAPSULE PO PRN (21:31)
[2018-07-17] MEDS: ACETAMINOPHEN 325 MG TABLET PO PRN (21:31)
[2018-07-18 05:22] VITALS: BP_SYST 130
[2018-07-18 07:09] LABS: CREATININE 1.98 mg/dL (0.55-1.30); POTASSIUM 5.5 mmol/L (3.5-5.1)
[2018-07-18 07:43] LABS: BASOPHILS # (AUTO) 0.1 K/uL (0.0-0.2); BASOPHILS % (AUTO) 0.7 % (0.0-2.0); HEMOGLOBIN 8.1 g/dL (14.0-18.0); LYMPHOCYTES # (AUTO) 0.2 K/uL (1.0-5.5); LYMPHOCYTES % (AUTO) 1.8 % (20.5-51.5); MEAN CORPUSCULAR HEMOGLOBIN 30 pg (27-31); MEAN CORPUSCULAR HGB CONC 34 % (32-36); MEAN CORPUSCULAR VOLUME 87 fL (79.0-98.0); MONOCYTES # (AUTO) 0.4 K/uL (0.0-1.0); MONOCYTES % (AUTO) 3.6 % (1.7-9.3); NEUTROPHILS # (AUTO) 10.8 K/uL (1.8-7.7); NEUTROPHILS % (AUTO) 93.9 % (40.0-70.0); PLATELET COUNT (AUTO) 86 K/uL (130-430); RED BLOOD CELL COUNT(AUTO) 2.75 MIL/uL (4.2-6.2); RED CELL DISTRIBUTION WIDTH 16.7 % (9.0-15.0); WHITE BLOOD COUNT (AUTO) 11.5 K/uL (4.8-10.8)
[2018-07-18 07:53] VITALS: BP_SYST 123
[2018-07-18] MEDS: IPRATROPIUM/ALBUTEROL SULFATE 3 ML AMPUL.NEB (DUONEB) INH PRN (08:15)
[2018-07-18] MEDS: CEFEPIME 1 GM in D5W 50 ML IV SCH ×2 (08:53→21:20)
[2018-07-18 08:54] LABS: INR 1.6 (0.80-1.20); PROTHROMBIN TIME 16.5 SECS (9.5-12.5)
[2018-07-18] MEDS: methylPREDNISolone SOD SUCC 40 MG/ML VIAL IVP SCH (08:54)
[2018-07-18] MEDS: amLODIPine BESYLATE 5 MG TABLET PO SCH (08:55)
[2018-07-18] MEDS: BENZONATATE 100 MG CAPSULE (TESSALON) PO SCH ×3 (08:55→21:21)
[2018-07-18] MEDS: PANTOPRAZOLE SODIUM 40 MG/VIAL (PROTONIX) IVP SCH (08:55)
[2018-07-18] MEDS: CINACALCET HCL 30 MG TABLET PO SCH (08:55)
[2018-07-18] MEDS: SPIRONOLACTONE 25 MG TABLET (ALDACTONE) PO SCH (08:56)
[2018-07-18] MEDS: SULFAMETHOXAZOLE/TRIMETHOPR DS 1 TABLET PO SCH ×2 (08:56→21:22)
[2018-07-18] MEDS: MAGNESIUM OXIDE 400 MG TABLET PO SCH ×2 (08:56→21:21)
[2018-07-18] MEDS: TACROLIMUS ANHYDROUS 1 MG CAPSULE (PROGRAF) PO SCH ×2 (08:57→21:23)
[2018-07-18] MEDS: POTASSIUM CHLORIDE 10 MEQ TAB.PRT.SR PO SCH (08:57)
[2018-07-18] MEDS: guaiFENesin ER 600 MG TAB PO SCH ×2 (08:57→21:22)
[2018-07-18] MEDS: METOPROLOL TARTRATE 50 MG TABLET PO SCH (08:57)
[2018-07-18] MEDS: MYCOPHENOLATE MOFETIL 250 MG CAPSULE PO SCH ×2 (08:57→21:23)
[2018-07-18] MEDS: FLECAINIDE ACETATE 50 MG TABLET (TAMBOCOR) PO SCH (08:58)
[2018-07-18] MEDS ORDERED: BUMEX 1 MG/4 ML VIAL IVP SCH (09:00)
[2018-07-18] MEDS: NACL 0.45% IV SCH (09:08)
[2018-07-18] MEDS: SODIUM BICARBONATE IV SCH (09:08)
[2018-07-18 12:54] VITALS: BP_SYST 117
[2018-07-18 16:00] VITALS: BP_SYST 126
[2018-07-18] MEDS: PREDNISONE 20 MG TABLET PO SCH (17:28)
[2018-07-18] MEDS: WARFARIN SODIUM 1 MG TABLET PO SCH (17:30)
[2018-07-18 20:55] VITALS: BP_SYST 116
[2018-07-18] MEDS: TEMAZEPAM 15 MG CAPSULE PO PRN (21:21)
[2018-07-18] MEDS: ACETAMINOPHEN 325 MG TABLET PO PRN (21:22)
[2018-07-18] MEDS: MIRTAZAPINE 15 MG TABLET PO SCH (21:22)
[2018-07-19] MEDS: MORPHINE 4 MG/ML INJ. SYRINGE IVP PRN (00:07)
[2018-07-19 00:56] VITALS: BP_SYST 116
[2018-07-19 07:27] LABS: BASOPHILS % (AUTO) 0.1 % (0.0-2.0); EOSINOPHILS % (AUTO) 0.2 % (0.0-4.0); HEMATOCRIT 25.6 % (36-54); HEMOGLOBIN 8.8 g/dL (14.0-18.0); LYMPHOCYTES # (AUTO) 0.3 K/uL (1.0-5.5); LYMPHOCYTES % (AUTO) 2.1 % (20.5-51.5); MEAN CORPUSCULAR HEMOGLOBIN 30 pg (27-31); MEAN CORPUSCULAR HGB CONC 34 % (32-36); MEAN CORPUSCULAR VOLUME 87 fL (79.0-98.0); MONOCYTES # (AUTO) 0.5 K/uL (0.0-1.0); MONOCYTES % (AUTO) 3.2 % (1.7-9.3); PLATELET COUNT (AUTO) 78 K/uL (130-430); RED BLOOD CELL COUNT(AUTO) 2.94 MIL/uL (4.2-6.2); RED CELL DISTRIBUTION WIDTH 16.6 % (9.0-15.0); WHITE BLOOD COUNT (AUTO) 14.8 K/uL (4.8-10.8)
[2018-07-19 07:42] LABS: INR 1.7 (0.80-1.20); PROTHROMBIN TIME 17.4 SECS (9.5-12.5)
[2018-07-19 07:50] VITALS: BP_SYST 122
[2018-07-19 07:52] LABS: CALCIUM 8.2 mg/dL (8.4-11.0); CREATININE 2.1 mg/dL (0.55-1.30)
[2018-07-19] MEDS ORDERED: WARFARIN SODIUM 1 MG TABLET PO SCH (08:06)
[2018-07-19 08:17] LABS: POTASSIUM 5.8 mmol/L (3.5-5.1)
[2018-07-19] MEDS ORDERED: FUROSEMIDE 40 MG/4 ML VIAL IVP ONE (08:45)
[2018-07-19] MEDS: CEFEPIME 1 GM in D5W 50 ML IV SCH (09:10)
[2018-07-19] MEDS: PANTOPRAZOLE SODIUM 40 MG/VIAL (PROTONIX) IVP SCH (09:11)
[2018-07-19] MEDS: SPIRONOLACTONE 25 MG TABLET (ALDACTONE) PO SCH (09:12)
[2018-07-19] MEDS: amLODIPine BESYLATE 5 MG TABLET PO SCH (09:13)
[2018-07-19] MEDS: METOPROLOL TARTRATE 50 MG TABLET PO SCH (09:13)
[2018-07-19] MEDS: SULFAMETHOXAZOLE/TRIMETHOPR DS 1 TABLET PO SCH (09:14)
[2018-07-19] MEDS: PREDNISONE 20 MG TABLET PO SCH (09:14)
[2018-07-19] MEDS: CINACALCET HCL 30 MG TABLET PO SCH (09:14)
[2018-07-19] MEDS: BENZONATATE 100 MG CAPSULE (TESSALON) PO SCH (09:14)
[2018-07-19] MEDS: FLECAINIDE ACETATE 50 MG TABLET (TAMBOCOR) PO SCH (09:15)
[2018-07-19] MEDS: guaiFENesin ER 600 MG TAB PO SCH (09:15)
[2018-07-19] MEDS: TACROLIMUS ANHYDROUS 1 MG CAPSULE (PROGRAF) PO SCH (09:16)
[2018-07-19] MEDS: MYCOPHENOLATE MOFETIL 250 MG CAPSULE PO SCH (09:16)
[2018-07-19] MEDS: MAGNESIUM OXIDE 400 MG TABLET PO SCH (09:25)
[2018-07-19 09:40] LABS: NEUTROPHILS % (AUTO) 94.4 % (40.0-70.0)
[2018-07-19 11:09] VITALS: BP_SYST 124
[2018-07-19 11:23] VITALS: BP_SYST 122
[2018-07-19] MEDS ORDERED: PRED20TA PO (11:33)
[2018-07-19] MEDS ORDERED: LEVO750T19 PO (11:37)
[2018-07-19] MEDS ORDERED: AMOX-426 PO (11:38)
[2018-07-19] MEDS ORDERED: BUME1TAB4 PO (11:39)
[2018-07-19] MEDS ORDERED: WARF2TAB2 PO (11:40)
== END 2018-07-19 13:35 | disposition home or self-care (01) | DRG 193 ==
LOC: SED 12:30 → SMU 16:03 → SIC 07-12 07:25 → STU 07-15 14:47
PROVIDERS: ADMIT Internal Medicine Hospice and Palliative Medicine; ATTEND Internal Medicine Hospice and Palliative Medicine
DX: J18.9 Pneumonia, unspecified organism (principal); J96.01 Acute respiratory failure with hypoxia; N18.6 End stage renal disease; N17.9 Acute kidney failure, unspecified; J44.0 Chronic obstructive pulmonary disease with (acute) lower respiratory infection; I13.2 Hypertensive heart and chronic kidney disease with heart failure and with stage 5 chronic kidney disease, or end stage renal disease; E87.1 Hypo-osmolality and hyponatremia; D61.818 Other pancytopenia; E46 Unspecified protein-calorie malnutrition; E87.2 Acidosis; E87.4 Mixed disorder of acid-base balance; Z94.0 Kidney transplant status; I48.91 Unspecified atrial fibrillation; K21.9 Gastro-esophageal reflux disease without esophagitis; E78.5 Hyperlipidemia, unspecified; E83.51 Hypocalcemia; E86.9 Volume depletion, unspecified; I35.1 Nonrheumatic aortic (valve) insufficiency; I50.9 Heart failure, unspecified; N13.9 Obstructive and reflux uropathy, unspecified; G89.29 Other chronic pain; D69.6 Thrombocytopenia, unspecified; Z79.01 Long term (current) use of anticoagulants; Z87.891 Personal history of nicotine dependence; Z68.27 Body mass index [BMI] 27.0-27.9, adult
CPT/HCPCS: 36415; 36600; 71045; 71046-TC; 74018; 76700-TC; 76770; 80048; 80053; 80197; 81000-TC; 82533; 82550-TC; 82803-TC; 83605; 83615-TC; 83735-TC; 83880; 83930-TC; 83935-TC; 84302-TC; 84484; 85007; 85025; 85027; 85610-TC; 85730-TC; 86713; 87040-TC; 87081; 87086; 93005; 93306; 94640; 94760; 96374; 99285; C9113; G0378; J0456; J0610; J0692; J0696; J1030; J1940; J2060; J2270; J3010; J3475; J3490; J7030; J7050; J7060; J7507; J7512; J7517; J7613; J7620

== ENCOUNTER 2018-10-31 03:55 | Emergency (ER) | payer MEDICARE, MEDICAID ==
[~2018-10-31] VITALS: Ht 175.3 cm; Wt 70.3 kg
[~2018-10-31 03:55] MED LIST changes: +AMOX-426 PO; +BENZ-16 PO; +BUME1TAB4 PO; +COU5 PO; +FLEC50TA2 PO; +LEVO750T19 PO; +MIRT15TA7 PO; +MYCO500T PO; +POTA10TA15 PO; +PRED20TA PO; +SEN30 PO; +SPIR25TA6 PO; -SULF1TAB48 PO; -VITD2000 PO; +WARF2TAB2 PO
[2018-10-31 03:56] VITALS: BP_SYST 127
[2018-10-31] MEDS ORDERED: TAMS-11 PO (04:45)
[2018-10-31] MEDS ORDERED: FURO-149 PO (04:45)
[2018-10-31 04:51] LABS: BASOPHILS # (AUTO) 0.1 K/uL (0.0-0.2); BASOPHILS % (AUTO) 1.1 % (0.0-2.0); EOSINOPHILS % (AUTO) 0.1 % (0.0-4.0); HEMATOCRIT 34.8 % (36-54); HEMOGLOBIN 11.8 g/dL (14.0-18.0); LYMPHOCYTES # (AUTO) 0.4 K/uL (1.0-5.5); LYMPHOCYTES % (AUTO) 3.8 % (20.5-51.5); MEAN CORPUSCULAR HEMOGLOBIN 29 pg (27-31); MEAN CORPUSCULAR HGB CONC 34 % (32-36); MEAN CORPUSCULAR VOLUME 86 fL (79.0-98.0); MONOCYTES # (AUTO) 1.6 K/uL (0.0-1.0); MONOCYTES % (AUTO) 16.6 % (1.7-9.3); NEUTROPHILS # (AUTO) 7.5 K/uL (1.8-7.7); NEUTROPHILS % (AUTO) 78.4 % (40.0-70.0); PLATELET COUNT (AUTO) 97 K/uL (130-430); RED BLOOD CELL COUNT(AUTO) 4.03 MIL/uL (4.2-6.2); RED CELL DISTRIBUTION WIDTH 15.3 % (9.0-15.0); WHITE BLOOD COUNT (AUTO) 9.5 K/uL (4.8-10.8)
[2018-10-31 05:03] LABS: CALCIUM 8.1 mg/dL (8.4-11.0); CREATININE 1.62 mg/dL (0.55-1.30); POTASSIUM 3.8 mmol/L (3.5-5.1)
[2018-10-31 05:07] LABS: INR 2.1 (0.80-1.20); PROTHROMBIN TIME 21.2 SECS (9.5-12.5)
[2018-10-31 05:10] LABS: ALBUMIN 4.2 g/dL (3.4-4.8); TOTAL BILIRUBIN 0.9 mg/dL (0.0-1.0)
[2018-10-31] MEDS ORDERED: LORazepam 2 MG/ML VIAL (FOR ER USE) IVP ONE (06:00)
[2018-10-31] MEDS ORDERED: NS 500 ML IV ONE (06:00)
[2018-10-31 06:59] LABS: BILIRUBIN,URINE NEGATIVE (NEGATIVE); CLARITY/URINE CLEAR (CLEAR); COLOR,URINE YELLOW (YELLOW); GLUCOSE,URINE NEGATIVE (NEGATIVE); KETONES,URINE NEGATIVE (NEGATIVE); LEUKOCYTE ESTERASE ,URINE NEGATIVE (NEGATIVE); NITRITE, URINE NEGATIVE (NEGATIVE); PROTEIN URINE NEGATIVE (NEGATIVE); UROBILINOGEN,URINE 0.2 (0.2-1.0)
[2018-10-31 07:16] LABS: BLOOD, URINE TRACE (NEGATIVE)
[2018-10-31 07:43] LABS: BACTERIA,URINE FEW /HPF (None Seen); WBC,URINE 0-3 /HPF (0-3)
[2018-10-31] MEDS ORDERED: PREDNISONE 10 MG TABLET PO ONE (08:15)
[2018-10-31] MEDS ORDERED: ALBUTEROL SULFATE 0.083% 2.5 MG/3 ML VIAL.NEB INH ONE (08:15)
[2018-10-31 09:14] VITALS: BP_SYST 127
== END 2018-10-31 09:14 | disposition home or self-care (01) ==
LOC: SED 03:55
DX: J44.9 Chronic obstructive pulmonary disease, unspecified (principal); N20.0 Calculus of kidney; I13.2 Hypertensive heart and chronic kidney disease with heart failure and with stage 5 chronic kidney disease, or end stage renal disease; I50.9 Heart failure, unspecified; N18.6 End stage renal disease; Z79.899 Other long term (current) drug therapy
CPT/HCPCS: 36415; 71045; 74176; 80053; 81000; 82550; 83605; 83880; 84484; 85025; 85610; 85730; 86710; 93005; 94640; 96361; 96374; 99284; J2060; J7040; J7512; J7613

== ENCOUNTER 2018-11-25 02:12 | Emergency (ER) | payer MEDICARE, MEDICAID ==
[~2018-11-25] VITALS: Ht 175.3 cm; Wt 68.9 kg
[~2018-11-25 02:12] MED LIST changes: +FURO-149 PO; +TAMS-11 PO
[2018-11-25 02:15] VITALS: BP_SYST 135
[2018-11-25] MEDS ORDERED: CYCLOBENZAPRINE HCL 10 MG TABLET (FLEXERIL) PO ONE (02:45)
[2018-11-25] MEDS ORDERED: KETOROLAC TROMETHAMINE 30 MG VIAL IM ONE (02:45)
[2018-11-25] MEDS ORDERED: MORPHINE 4 MG/ML INJ. SYRINGE IM ONE (02:45)
[2018-11-25 03:35] VITALS: BP_SYST 135
== END 2018-11-25 03:35 | disposition home or self-care (01) ==
LOC: SED 02:12
DX: S16.1XXA Strain of muscle, fascia and tendon at neck level, initial encounter (principal); I13.0 Hypertensive heart and chronic kidney disease with heart failure and stage 1 through stage 4 chronic kidney disease, or unspecified chronic kidney disease; N18.9 Chronic kidney disease, unspecified; I50.9 Heart failure, unspecified; K21.9 Gastro-esophageal reflux disease without esophagitis; J44.9 Chronic obstructive pulmonary disease, unspecified; I48.91 Unspecified atrial fibrillation; Z79.899 Other long term (current) drug therapy; X58.XXXA Exposure to other specified factors, initial encounter; Y93.89 Activity, other specified; Y92.89 Other specified places as the place of occurrence of the external cause; Y99.8 Other external cause status
CPT/HCPCS: 96372; 99283; J2270

== ENCOUNTER 2019-02-15 19:34 | Inpatient (IN) | payer MEDICARE, MEDICAID ==
[~2019-02-15] VITALS: Ht 175.3 cm; Wt 75.3 kg
[2019-02-15 19:45] VITALS: BP_SYST 132
[2019-02-15] MEDS ORDERED: NACL 0.9% 1,000 ML IV ONE (20:15)
[2019-02-15] MEDS ORDERED: POTA99TA24 PO (20:30)
[2019-02-15 20:38] LABS: BASOPHILS # (AUTO) 0.1 K/uL (0.0-0.2); BASOPHILS % (AUTO) 0.6 % (0.0-2.0); EOSINOPHILS % (AUTO) 0.1 % (0.0-4.0); HEMATOCRIT 28.4 % (36-54); HEMOGLOBIN 9.7 g/dL (14.0-18.0); LYMPHOCYTES # (AUTO) 0.3 K/uL (1.0-5.5); LYMPHOCYTES % (AUTO) 2.6 % (20.5-51.5); MEAN CORPUSCULAR HEMOGLOBIN 30 pg (27-31); MEAN CORPUSCULAR HGB CONC 34 % (32-36); MEAN CORPUSCULAR VOLUME 88 fL (79.0-98.0); MONOCYTES # (AUTO) 2.3 K/uL (0.0-1.0); MONOCYTES % (AUTO) 17.9 % (1.7-9.3); NEUTROPHILS # (AUTO) 10.1 K/uL (1.8-7.7); PLATELET COUNT (AUTO) 71 K/uL (130-430); RED BLOOD CELL COUNT(AUTO) 3.22 MIL/uL (4.2-6.2); RED CELL DISTRIBUTION WIDTH 16.2 % (9.0-15.0); WHITE BLOOD COUNT (AUTO) 12.8 K/uL (4.8-10.8)
[2019-02-15 20:47] LABS: CALCIUM 7.6 mg/dL (8.4-11.0); CREATININE 1.5 mg/dL (0.55-1.30); POTASSIUM 3.5 mmol/L (3.5-5.1)
[2019-02-15 20:51] LABS: ALBUMIN 3.9 g/dL (3.4-4.8); TOTAL BILIRUBIN 0.8 mg/dL (0.0-1.0)
[2019-02-15] MEDS ORDERED: VANCOMYCIN HCL 1,000 MG in NS 250 ML IV ONE (21:00)
[2019-02-15] MEDS ORDERED: PIPERACILLIN/TAZO 3.375 GM in NS 50 ML IV ONE (21:00)
[2019-02-15 21:06] LABS: NEUTROPHILS % (AUTO) 78.8 % (40.0-70.0)
[2019-02-15] MEDS ORDERED: PIPERACILLIN/TAZOBACTAM 3.375 GM/VIAL (ZOSYN) IV ONE (21:38)
[2019-02-15] MEDS ORDERED: VANCOMYCIN HCL 1000 MG/VIAL IV ONE (21:38)
[2019-02-15 23:04] LABS: BILIRUBIN,URINE NEGATIVE (NEGATIVE); BLOOD, URINE NEGATIVE (NEGATIVE); CLARITY/URINE SL HAZY (CLEAR); COLOR,URINE YELLOW (YELLOW); GLUCOSE,URINE NEGATIVE (NEGATIVE); KETONES,URINE NEGATIVE (NEGATIVE); LEUKOCYTE ESTERASE ,URINE NEGATIVE (NEGATIVE); NITRITE, URINE NEGATIVE (NEGATIVE); PH,URINE 5.5 (5.0-8.0); PROTEIN URINE NEGATIVE (NEGATIVE); UROBILINOGEN,URINE 0.2 (0.2-1.0)
[2019-02-15 23:43] VITALS: BP_SYST 133
[2019-02-16] VITALS (7 sets, daily range): BP systolic 62–133
[2019-02-16] MEDS ORDERED: ONDANSETRON HCL 4 MG/2 ML VIAL IVP PRN
[2019-02-16] MEDS ORDERED: ALBUTEROL SULFATE 0.083% 2.5 MG/3 ML VIAL.NEB INH PRN
[2019-02-16] MEDS ORDERED: AZITHROMYCIN 500 MG in NS 250 ML IV SCH ×2
[2019-02-16] MEDS: NACL 0.9% 1,000 ML IV SCH ×2 (00:19→18:08)
[2019-02-16] MEDS ORDERED: PIPERACILLIN/TAZOBACTAM 3.375 GM/VIAL (ZOSYN) IV ONE (00:41)
[2019-02-16] MEDS: MORPHINE 2 MG/ML INJ. SYRINGE IVP PRN (02:35)
[2019-02-16] MEDS: PIPERACILLIN/TAZO 3.375/DEX-IS 50 ML IV SCH ×2 (02:52→08:28)
[2019-02-16 05:56] LABS: BASOPHILS % (AUTO) 0.3 % (0.0-2.0); HEMATOCRIT 27.1 % (36-54); HEMOGLOBIN 9.4 g/dL (14.0-18.0); LYMPHOCYTES # (AUTO) 0.7 K/uL (1.0-5.5); LYMPHOCYTES % (AUTO) 5.4 % (20.5-51.5); MEAN CORPUSCULAR HEMOGLOBIN 30 pg (27-31); MEAN CORPUSCULAR HGB CONC 35 % (32-36); MEAN CORPUSCULAR VOLUME 87 fL (79.0-98.0); MONOCYTES # (AUTO) 2.8 K/uL (0.0-1.0); MONOCYTES % (AUTO) 22.4 % (1.7-9.3); NEUTROPHILS # (AUTO) 8.9 K/uL (1.8-7.7); NEUTROPHILS % (AUTO) 71.9 % (40.0-70.0); WHITE BLOOD COUNT (AUTO) 12.4 K/uL (4.8-10.8)
[2019-02-16 06:09] LABS: ALBUMIN 3.3 g/dL (3.4-4.8); CALCIUM 7.4 mg/dL (8.4-11.0); CREATININE 1.68 mg/dL (0.55-1.30); POTASSIUM 3.5 mmol/L (3.5-5.1); TOTAL BILIRUBIN 1.3 mg/dL (0.0-1.0)
[2019-02-16] MEDS: PANTOPRAZOLE SODIUM 40 MG TAB PO SCH (06:12)
[2019-02-16] MEDS: BENZONATATE 100 MG CAPSULE (TESSALON) PO SCH ×3 (08:28→22:15)
[2019-02-16] MEDS: CINACALCET HCL 30 MG TABLET PO SCH (08:28)
[2019-02-16] MEDS: TAMSULOSIN HCL 0.4 MG CAP PO SCH (08:29)
[2019-02-16] MEDS: METOPROLOL TARTRATE 25 MG TABLET PO SCH (08:29)
[2019-02-16] MEDS: BUMETANIDE 1 MG TABLET PO SCH (08:30)
[2019-02-16] MEDS: FLECAINIDE ACETATE 50 MG TABLET (TAMBOCOR) PO SCH ×2 (08:31→22:15)
[2019-02-16] MEDS: MYCOPHENOLATE MOFETIL 250 MG CAPSULE PO SCH ×2 (08:31→18:09)
[2019-02-16] MEDS: TACROLIMUS ANHYDROUS 1 MG CAPSULE (PROGRAF) PO SCH ×2 (08:32→22:15)
[2019-02-16] MEDS ORDERED: predniSONE 1 MG TABLET PO SCH (09:00)
[2019-02-16] MEDS ORDERED: IPRATROPIUM BROM 0.5 MG/2.5 ML VIAL.NEB (ATROVENT) INH ONE (09:45)
[2019-02-16] MEDS ORDERED: ALBUTEROL SULFATE 0.083% 2.5 MG/3 ML VIAL.NEB INH ONE (09:45)
[2019-02-16] MEDS ORDERED: metroNIDAZOLE 500 mg/NS 100 ML IV ONE (10:00)
[2019-02-16 10:11] LABS: PLATELET COUNT (AUTO) 63 K/uL (130-430)
[2019-02-16 10:15] LABS: INR 2.4 (0.80-1.20); PROTHROMBIN TIME 23.6 SECS (9.5-12.5)
[2019-02-16] MEDS ORDERED: MAGNESIUM OXIDE 400 MG TABLET PO ONE (10:30)
[2019-02-16] MEDS ORDERED: VANCOMYCIN HCL ORAL SOLUTION 250 MG/5 ML, 80 ML PO ONE (11:00)
[2019-02-16] MEDS: ALBUTEROL SULFATE 0.083% 2.5 MG/3 ML VIAL.NEB INH SCH ×3 (11:26→19:42)
[2019-02-16] MEDS: IPRATROPIUM BROM 0.5 MG/2.5 ML VIAL.NEB (ATROVENT) INH SCH ×3 (11:27→19:42)
[2019-02-16] MEDS ORDERED: cefTRIAXone 1 GM in D5W 50 ML IV SCH (12:00)
[2019-02-16] MEDS: VANCOMYCIN HCL ORAL SOLUTION 250 MG/5 ML, 80 ML PO SCH ×2 (12:55→18:08)
[2019-02-16] MEDS ORDERED: VANCOMYCIN HCL ORAL SOLUTION 250 MG/5 ML, 80 ML PO SCH (13:00)
[2019-02-16] MEDS ORDERED: metroNIDAZOLE 500 mg/NS 100 ML IV SCH (14:00)
[2019-02-16] MEDS: LOPERAMIDE HCL 2 MG CAPSULE PO PRN ×2 (15:01→22:15)
[2019-02-16] MEDS ORDERED: LORazepam 2 MG/ML VIAL IVP ONE (15:15)
[2019-02-16] MEDS ORDERED: WARFARIN SODIUM 2 MG TABLET PO SCH (18:00)
[2019-02-16] MEDS: metroNIDAZOLE 500 mg/NS 100 ML IV SCH (18:09)
[2019-02-16 21:51] LABS: HEMATOCRIT 27.1 % (36-54); HEMOGLOBIN 9.2 g/dL (14.0-18.0); MEAN CORPUSCULAR HEMOGLOBIN 30 pg (27-31); MEAN CORPUSCULAR HGB CONC 34 % (32-36); MEAN CORPUSCULAR VOLUME 88 fL (79.0-98.0); PLATELET COUNT (AUTO) 52 K/uL (130-430); RED BLOOD CELL COUNT(AUTO) 3.07 MIL/uL (4.2-6.2); RED CELL DISTRIBUTION WIDTH 16.1 % (9.0-15.0); WHITE BLOOD COUNT (AUTO) 22.7 K/uL (4.8-10.8)
[2019-02-16] MEDS: HYDROCORTISONE SOD SUCC 100 MG/2 ML VIAL IVP SCH ×2 (22:00→22:07)
[2019-02-16] MEDS: MAGNESIUM OXIDE 400 MG TABLET PO SCH (22:15)
[2019-02-16] MEDS: ACETAMINOPHEN 325 MG TABLET PO PRN (22:15)
[2019-02-16 22:31] LABS: CALCIUM 7.4 mg/dL (8.4-11.0); CREATININE 2.94 mg/dL (0.55-1.30)
[2019-02-16 22:36] LABS: TOTAL BILIRUBIN 1.3 mg/dL (0.0-1.0)
[2019-02-16] MEDS ORDERED: PIPERACILLIN/TAZO 3.375/DEX-IS 50 ML IV SCH (23:00)
[2019-02-16] MEDS: NOREPINEPHRINE BITARTRATE 8 MG in D5W 242 ML IV PRN (23:00)
[2019-02-16] MEDS ORDERED: POTASSIUM CHLORIDE 40 MEQ in NS 250 ML IV ONE (23:00)
[2019-02-16] MEDS ORDERED: VANCOMYCIN HCL 250 MG CAPSULE PO SCH (23:00)
[2019-02-16 23:01] LABS: POTASSIUM 2.9 mmol/L (3.5-5.1)
[2019-02-16] MEDS ORDERED: NOREPINEPHRINE 4 MG/4 ML VIAL IV ONE (23:06)
[2019-02-16 23:11] LABS: BAND % (MANUAL) 17 % (0-6)
[2019-02-16 23:12] LABS: BASOPHILS % (MANUAL) 0 % (0-2); EOSINOPHILS % (MANUAL) 0 % (0-7); LYMPHOCYTES % (MANUAL) 3 % (20-46); MONOCYTES % (MANUAL) 17 % (0-11)
[2019-02-16] MEDS ORDERED: MAGNESIUM SULFATE IN WATER 100 ML IV ONE (23:15)
[2019-02-16] MEDS ORDERED: MAGNESIUM SULFATE 100 ML IV ONE (23:24)
[2019-02-17] VITALS (24 sets, daily range): BP systolic 76–128
[2019-02-17] MEDS: VANCOMYCIN HCL ORAL SOLUTION 250 MG/5 ML, 80 ML PO SCH ×5 (00:32→20:37)
[2019-02-17] MEDS ORDERED: PIPERACILLIN/TAZOBACTAM 3.375 GM/VIAL (ZOSYN) IV ONE (00:35)
[2019-02-17] MEDS: IPRATROPIUM BROM 0.5 MG/2.5 ML VIAL.NEB (ATROVENT) INH SCH ×6 (00:38→23:00)
[2019-02-17] MEDS: ALBUTEROL SULFATE 0.083% 2.5 MG/3 ML VIAL.NEB INH SCH ×6 (00:39→23:00)
[2019-02-17] MEDS ORDERED: KCL 20 mEq in 100 mL (PREMIX) 200 ML IV ONE (01:10)
[2019-02-17] MEDS: metroNIDAZOLE 500 mg/NS 100 ML IV SCH ×3 (03:39→17:18)
[2019-02-17] MEDS: NACL 0.9% 1,000 ML IV SCH ×2 (03:41→19:54)
[2019-02-17] MEDS ORDERED: NOREPINEPHRINE 4 MG/4 ML VIAL IV ONE ×2 (05:48→05:50)
[2019-02-17] MEDS: HYDROCORTISONE SOD SUCC 100 MG/2 ML VIAL IVP SCH ×3 (06:09→22:36)
[2019-02-17] MEDS: PANTOPRAZOLE SODIUM 40 MG TAB PO SCH (06:09)
[2019-02-17] MEDS: NOREPINEPHRINE BITARTRATE 8 MG in D5W 242 ML IV PRN (06:10)
[2019-02-17] MEDS: TAMSULOSIN HCL 0.4 MG CAP PO SCH (08:52)
[2019-02-17] MEDS: FLECAINIDE ACETATE 50 MG TABLET (TAMBOCOR) PO SCH ×2 (08:52→20:37)
[2019-02-17] MEDS: TACROLIMUS ANHYDROUS 1 MG CAPSULE (PROGRAF) PO SCH ×2 (08:52→20:37)
[2019-02-17] MEDS: BENZONATATE 100 MG CAPSULE (TESSALON) PO SCH ×3 (08:52→20:36)
[2019-02-17] MEDS: MAGNESIUM OXIDE 400 MG TABLET PO SCH ×2 (08:52→20:37)
[2019-02-17] MEDS: BUMETANIDE 1 MG TABLET PO SCH (08:53)
[2019-02-17] MEDS: MYCOPHENOLATE MOFETIL 250 MG CAPSULE PO SCH ×2 (08:53→17:18)
[2019-02-17] MEDS: METOPROLOL TARTRATE 25 MG TABLET PO SCH (08:54)
[2019-02-17] MEDS: PIPERACILLIN/TAZOBACTAM 2.25 GM/ D5W 50 ML IV SCH ×6 (08:54→17:18)
[2019-02-17] MEDS: CINACALCET HCL 30 MG TABLET PO SCH (09:32)
[2019-02-17] MEDS ORDERED: SODIUM BICARBONATE 8.4% JECT 50 MEQ/50 ML SYRINGE IVP ONE (10:30)
[2019-02-17] MEDS: ACETAMINOPHEN 325 MG TABLET PO PRN ×2 (11:41→22:47)
[2019-02-17 15:43] LABS: BASOPHILS % (AUTO) 0.2 % (0.0-2.0); HEMATOCRIT 26.8 % (36-54); HEMOGLOBIN 9.1 g/dL (14.0-18.0); LYMPHOCYTES # (AUTO) 0.2 K/uL (1.0-5.5); LYMPHOCYTES % (AUTO) 1.2 % (20.5-51.5); MEAN CORPUSCULAR HEMOGLOBIN 30 pg (27-31); MEAN CORPUSCULAR HGB CONC 34 % (32-36); MEAN CORPUSCULAR VOLUME 88 fL (79.0-98.0); MONOCYTES # (AUTO) 1.8 K/uL (0.0-1.0); MONOCYTES % (AUTO) 9.1 % (1.7-9.3); NEUTROPHILS # (AUTO) 17.4 K/uL (1.8-7.7); RED BLOOD CELL COUNT(AUTO) 3.05 MIL/uL (4.2-6.2); RED CELL DISTRIBUTION WIDTH 16.3 % (9.0-15.0); WHITE BLOOD COUNT (AUTO) 19.4 K/uL (4.8-10.8)
[2019-02-17 16:05] LABS: NEUTROPHILS % (AUTO) 89.5 % (40.0-70.0); PLATELET COUNT (AUTO) 48 K/uL (130-430)
[2019-02-17 16:08] LABS: ALBUMIN 2.8 g/dL (3.4-4.8); CALCIUM 7.4 mg/dL (8.4-11.0); CREATININE 3.18 mg/dL (0.55-1.30); PHOSPHORUS 4.2 mg/dL (2.7-4.5); POTASSIUM 3.4 mmol/L (3.5-5.1); TOTAL BILIRUBIN 0.9 mg/dL (0.0-1.0)
[2019-02-17 16:23] LABS: INR 3.9 (0.80-1.20)
[2019-02-17 16:24] LABS: PROTHROMBIN TIME 37.4 SECS (9.5-12.5)
[2019-02-17] MEDS ORDERED: BUMEX 1 MG/4 ML VIAL IVP ONE (19:45)
[2019-02-18] VITALS (24 sets, daily range): BP systolic 98–139
[2019-02-18] MEDS ORDERED: ALPRAZolam 0.25 MG TABLET PO SCH (00:30)
[2019-02-18] MEDS: MORPHINE 2 MG/ML INJ. SYRINGE IVP PRN ×4 (01:49→22:45)
[2019-02-18] MEDS: metroNIDAZOLE 500 mg/NS 100 ML IV SCH ×3 (01:52→17:07)
[2019-02-18] MEDS: ALBUTEROL SULFATE 0.083% 2.5 MG/3 ML VIAL.NEB INH SCH ×6 (03:24→23:10)
[2019-02-18] MEDS: IPRATROPIUM BROM 0.5 MG/2.5 ML VIAL.NEB (ATROVENT) INH SCH ×6 (03:24→23:10)
[2019-02-18 05:34] LABS: BASOPHILS % (AUTO) 0.1 % (0.0-2.0); HEMATOCRIT 27.7 % (36-54); HEMOGLOBIN 9.6 g/dL (14.0-18.0); LYMPHOCYTES # (AUTO) 0.2 K/uL (1.0-5.5); LYMPHOCYTES % (AUTO) 0.8 % (20.5-51.5); MEAN CORPUSCULAR HEMOGLOBIN 30 pg (27-31); MEAN CORPUSCULAR HGB CONC 35 % (32-36); MEAN CORPUSCULAR VOLUME 87 fL (79.0-98.0); MONOCYTES # (AUTO) 2.7 K/uL (0.0-1.0); NEUTROPHILS # (AUTO) 21.8 K/uL (1.8-7.7); NEUTROPHILS % (AUTO) 88.1 % (40.0-70.0); PLATELET COUNT (AUTO) 52 K/uL (130-430); WHITE BLOOD COUNT (AUTO) 24.8 K/uL (4.8-10.8)
[2019-02-18 06:00] LABS: PROTHROMBIN TIME 45.6 SECS (9.5-12.5)
[2019-02-18 06:01] LABS: ALBUMIN 2.8 g/dL (3.4-4.8); CALCIUM 7.1 mg/dL (8.4-11.0); CREATININE 3.32 mg/dL (0.55-1.30); INR 4.8 (0.80-1.20); TOTAL BILIRUBIN 0.8 mg/dL (0.0-1.0)
[2019-02-18 06:04] LABS: POTASSIUM 2.9 mmol/L (3.5-5.1)
[2019-02-18] MEDS: PANTOPRAZOLE SODIUM 40 MG TAB PO SCH (06:10)
[2019-02-18] MEDS: HYDROCORTISONE SOD SUCC 100 MG/2 ML VIAL IVP SCH ×3 (06:11→21:59)
[2019-02-18] MEDS: NOREPINEPHRINE BITARTRATE 8 MG in D5W 242 ML IV PRN ×2 (06:16→15:45)
[2019-02-18] MEDS: NACL 0.9% 1,000 ML IV SCH (06:19)
[2019-02-18] MEDS ORDERED: PIPERACILLIN/TAZO 2.25G/DEX-IS 50 ML IV ONE (08:30)
[2019-02-18] MEDS ORDERED: PIPERACILLIN/TAZO 3.375/DEX-IS 50 ML IV ONE (08:30)
[2019-02-18] MEDS: TAMSULOSIN HCL 0.4 MG CAP PO SCH (09:00)
[2019-02-18] MEDS: MAGNESIUM OXIDE 400 MG TABLET PO SCH ×2 (09:00→21:59)
[2019-02-18] MEDS: MYCOPHENOLATE MOFETIL 250 MG CAPSULE PO SCH ×2 (09:00→17:08)
[2019-02-18] MEDS: BENZONATATE 100 MG CAPSULE (TESSALON) PO SCH ×3 (09:00→21:59)
[2019-02-18] MEDS: POTASSIUM CHLORIDE 20 MEQ TAB.PRT.SR PO SCH ×2 (09:00→12:44)
[2019-02-18] MEDS: METOPROLOL TARTRATE 25 MG TABLET PO SCH (09:01)
[2019-02-18] MEDS: CINACALCET HCL 30 MG TABLET PO SCH (09:01)
[2019-02-18] MEDS: FLECAINIDE ACETATE 50 MG TABLET (TAMBOCOR) PO SCH ×2 (09:01→21:59)
[2019-02-18] MEDS: VANCOMYCIN HCL ORAL SOLUTION 250 MG/5 ML, 80 ML PO SCH ×4 (09:01→21:59)
[2019-02-18] MEDS: TACROLIMUS ANHYDROUS 1 MG CAPSULE (PROGRAF) PO SCH ×2 (09:01→21:59)
[2019-02-18] MEDS ORDERED: BUMEX 1 MG/4 ML VIAL IVP ONE ×2 (10:45→22:00)
[2019-02-18] MEDS ORDERED: SODIUM BICARBONATE 8.4% JECT 50 MEQ/50 ML SYRINGE IV ONE ×2 (11:30→13:00)
[2019-02-18] MEDS ORDERED: POTASSIUM CHLORIDE 20 MEQ TAB.PRT.SR PO ONE (11:30)
[2019-02-18] MEDS: CEFEPIME 2 GM in D5W 100 ML IV SCH (11:34)
[2019-02-18] MEDS ORDERED: FLUDROCORTISONE ACETATE 0.1 MG TABLET( FLORINEF) PO ONE (13:45)
[2019-02-18] MEDS: SODIUM BICARBONATE 8.4% JECT 100 MEQ in D5W 1,000 ML IV SCH (15:35)
[2019-02-18] MEDS: PIPERACILLIN/TAZO 3.375/DEX-IS 50 ML IV SCH ×2 (17:08→23:58)
[2019-02-18] MEDS ORDERED: PIPERACILLIN/TAZO 2.25G/DEX-IS 50 ML IV SCH (18:00)
[2019-02-18] MEDS: IPRATROPIUM BROM 0.5 MG/2.5 ML VIAL.NEB (ATROVENT) INH PRN (20:55)
[2019-02-18] MEDS: ALBUTEROL SULFATE 0.083% 2.5 MG/3 ML VIAL.NEB INH PRN (20:55)
[2019-02-18] MEDS: ACETAMINOPHEN 325 MG TABLET PO PRN (22:40)
[2019-02-19] VITALS (27 sets, daily range): BP systolic 88–132
[2019-02-19] MEDS: metroNIDAZOLE 500 mg/NS 100 ML IV SCH ×3 (02:20→19:45)
[2019-02-19] MEDS: SODIUM BICARBONATE 8.4% JECT 100 MEQ in D5W 1,000 ML IV SCH ×2 (02:21→12:01)
[2019-02-19] MEDS: ALBUTEROL SULFATE 0.083% 2.5 MG/3 ML VIAL.NEB INH SCH ×5 (02:35→20:16)
[2019-02-19] MEDS: IPRATROPIUM BROM 0.5 MG/2.5 ML VIAL.NEB (ATROVENT) INH SCH ×5 (02:35→20:16)
[2019-02-19] MEDS: MORPHINE 2 MG/ML INJ. SYRINGE IVP PRN ×3 (02:44→22:37)
[2019-02-19 05:49] LABS: BASOPHILS % (AUTO) 0.1 % (0.0-2.0); LYMPHOCYTES # (AUTO) 0.1 K/uL (1.0-5.5); LYMPHOCYTES % (AUTO) 0.8 % (20.5-51.5); MEAN CORPUSCULAR HEMOGLOBIN 31 pg (27-31); MEAN CORPUSCULAR HGB CONC 33 % (32-36); MEAN CORPUSCULAR VOLUME 93 fL (79.0-98.0); MONOCYTES # (AUTO) 1.4 K/uL (0.0-1.0); MONOCYTES % (AUTO) 13.1 % (1.7-9.3); NEUTROPHILS # (AUTO) 8.9 K/uL (1.8-7.7); RED BLOOD CELL COUNT(AUTO) 2.04 MIL/uL (4.2-6.2); RED CELL DISTRIBUTION WIDTH 16.9 % (9.0-15.0); WHITE BLOOD COUNT (AUTO) 10.3 K/uL (4.8-10.8)
[2019-02-19 05:50] LABS: HEMATOCRIT 19.1 % (36-54); HEMOGLOBIN 6.3 g/dL (14.0-18.0)
[2019-02-19 05:51] LABS: ALANINE AMINOTRANSFERASE 18 U/L (12-78); ALBUMIN 1.6 g/dL (3.4-4.8); ANION GAP 1 (5-15); ASPARTATE AMINOTRANSFERASE 16 U/L (10-37); CREATININE 2.53 mg/dL (0.55-1.30); PLATELET COUNT (AUTO) 36 K/uL (130-430); TOTAL BILIRUBIN 0.5 mg/dL (0.0-1.0); UREA NITROGEN, BLOOD 46 mg/dL (8-21)
[2019-02-19 05:57] LABS: POTASSIUM 2.2 mmol/L (3.5-5.1); SODIUM SERUM 115 mmol/L (136-145)
[2019-02-19 05:58] LABS: CHLORIDE 75 mmol/L (98-107); GLUCOSE 1378 mg/dL (70-99)
[2019-02-19 05:59] LABS: CALCIUM < 5.0 mg/dL (8.4-11.0); GFR AFRICAN AMERICAN 33 mL/min (>90)
[2019-02-19 06:04] LABS: PROTHROMBIN TIME 80.2 SECS (9.5-12.5)
[2019-02-19 06:05] LABS: INR 8.6 (0.80-1.20)
[2019-02-19] MEDS: PIPERACILLIN/TAZO 3.375/DEX-IS 50 ML IV SCH (06:28)
[2019-02-19] MEDS: HYDROCORTISONE SOD SUCC 100 MG/2 ML VIAL IVP SCH ×3 (06:28→21:43)
[2019-02-19 07:04] LABS: POTASSIUM 3.2 mmol/L (3.5-5.1)
[2019-02-19 07:05] LABS: CALCIUM 7.5 mg/dL (8.4-11.0); CREATININE 3.07 mg/dL (0.55-1.30); TOTAL BILIRUBIN 0.9 mg/dL (0.0-1.0)
[2019-02-19 07:06] LABS: ALBUMIN 2.7 g/dL (3.4-4.8)
[2019-02-19 08:14] LABS: HEMATOCRIT 27.2 % (36-54); HEMOGLOBIN 9.4 g/dL (14.0-18.0); MEAN CORPUSCULAR HEMOGLOBIN 30 pg (27-31); MEAN CORPUSCULAR HGB CONC 34 % (32-36); MEAN CORPUSCULAR VOLUME 87 fL (79.0-98.0); PLATELET COUNT (AUTO) 55 K/uL (130-430); RED BLOOD CELL COUNT(AUTO) 3.15 MIL/uL (4.2-6.2); RED CELL DISTRIBUTION WIDTH 16.1 % (9.0-15.0); WHITE BLOOD COUNT (AUTO) 16.1 K/uL (4.8-10.8)
[2019-02-19] MEDS: MAGNESIUM OXIDE 400 MG TABLET PO SCH ×2 (08:42→21:43)
[2019-02-19] MEDS: TAMSULOSIN HCL 0.4 MG CAP PO SCH (08:42)
[2019-02-19] MEDS: FAMOTIDINE 20 MG TABLET PO SCH (08:42)
[2019-02-19] MEDS: FLECAINIDE ACETATE 50 MG TABLET (TAMBOCOR) PO SCH ×2 (08:42→21:43)
[2019-02-19] MEDS: METOPROLOL TARTRATE 25 MG TABLET PO SCH (08:43)
[2019-02-19] MEDS: BENZONATATE 100 MG CAPSULE (TESSALON) PO SCH ×2 (08:44→15:21)
[2019-02-19] MEDS: FLUDROCORTISONE ACETATE 0.1 MG TABLET( FLORINEF) PO SCH (08:44)
[2019-02-19] MEDS: MYCOPHENOLATE MOFETIL 250 MG CAPSULE PO SCH ×2 (08:45→19:05)
[2019-02-19] MEDS: CINACALCET HCL 30 MG TABLET PO SCH (08:50)
[2019-02-19] MEDS: TACROLIMUS ANHYDROUS 1 MG CAPSULE (PROGRAF) PO SCH ×2 (08:51→21:44)
[2019-02-19] MEDS: VANCOMYCIN HCL ORAL SOLUTION 250 MG/5 ML, 80 ML PO SCH ×4 (08:58→21:44)
[2019-02-19 10:09] LABS: ATYPICAL LYMPHOCYTES % 2 % (0-0); BAND % (MANUAL) 7 % (0-6); BASOPHILS % (MANUAL) 0 % (0-2); EOSINOPHILS % (MANUAL) 0 % (0-7); LYMPHOCYTES % (MANUAL) 4 % (20-46); METAMYELOCYTES % 1 % (0-0); MONOCYTES % (MANUAL) 12 % (0-11)
[2019-02-19] MEDS ORDERED: LORazepam 2 MG/ML VIAL IVP PRN (10:30)
[2019-02-19 10:37] LABS: INR 5.7 (0.80-1.20)
[2019-02-19 10:38] LABS: PROTHROMBIN TIME 54.4 SECS (9.5-12.5)
[2019-02-19] MEDS ORDERED: COMMUNICATION ORDER XX ONE (10:45)
[2019-02-19] MEDS ORDERED: PHYTONADIONE 10 MG/ML AMP SUBCUT ONE (10:45)
[2019-02-19] MEDS: CEFEPIME 2 GM in D5W 100 ML IV SCH (11:59)
[2019-02-19] MEDS ORDERED: MIDAZOLAM HCL 5 MG/5 ML VIAL ONE (14:07)
[2019-02-19] MEDS ORDERED: PROPOFOL DRIP 100 ML IV ONE (14:19)
[2019-02-19] MEDS ORDERED: BUMEX 1 MG/4 ML VIAL IVP ONE (15:30)
[2019-02-19] MEDS ORDERED: POTASSIUM CHLORIDE 40 MEQ in NS 250 ML IV ONE (15:45)
[2019-02-19] MEDS ORDERED: ETOMIDATE 20 MG/ 10 ML VIAL (AMIDATE) IVP ONE (16:19)
[2019-02-19] MEDS ORDERED: ALBUMIN HUMAN 25% 200 ML IV ONE (17:30)
[2019-02-19] MEDS: PROPOFOL DRIP 100 ML IV PRN (22:00)
[2019-02-19] MEDS ORDERED: PROPOFOL DRIP 200 ML IV ONE (23:33)
[2019-02-20] VITALS (34 sets, daily range): BP systolic 95–175
[2019-02-20] MEDS: NOREPINEPHRINE BITARTRATE 8 MG in D5W 242 ML IV PRN ×2 (00:04→13:09)
[2019-02-20] MEDS: LORazepam 2 MG/ML VIAL IVP PRN ×4 (00:17→13:22)
[2019-02-20] MEDS: metroNIDAZOLE 500 mg/NS 100 ML IV SCH ×3 (02:13→17:25)
[2019-02-20] MEDS: IPRATROPIUM BROM 0.5 MG/2.5 ML VIAL.NEB (ATROVENT) INH SCH ×6 (04:08→23:25)
[2019-02-20] MEDS: ALBUTEROL SULFATE 0.083% 2.5 MG/3 ML VIAL.NEB INH SCH ×6 (04:09→23:25)
[2019-02-20] MEDS: MORPHINE 2 MG/ML INJ. SYRINGE IVP PRN ×3 (04:31→13:21)
[2019-02-20] MEDS: HYDROCORTISONE SOD SUCC 100 MG/2 ML VIAL IVP SCH ×3 (05:12→21:18)
[2019-02-20] MEDS: PROPOFOL DRIP 100 ML IV PRN ×4 (05:15→23:52)
[2019-02-20] MEDS: SODIUM BICARBONATE 8.4% JECT 100 MEQ in D5W 1,000 ML IV SCH ×2 (05:16→23:53)
[2019-02-20 05:32] LABS: BASOPHILS % (AUTO) 0.1 % (0.0-2.0); HEMATOCRIT 24.1 % (36-54); HEMOGLOBIN 8.3 g/dL (14.0-18.0); LYMPHOCYTES # (AUTO) 0.2 K/uL (1.0-5.5); LYMPHOCYTES % (AUTO) 1.8 % (20.5-51.5); MEAN CORPUSCULAR HEMOGLOBIN 30 pg (27-31); MEAN CORPUSCULAR HGB CONC 35 % (32-36); MEAN CORPUSCULAR VOLUME 87 fL (79.0-98.0); MONOCYTES # (AUTO) 2.5 K/uL (0.0-1.0); MONOCYTES % (AUTO) 20.2 % (1.7-9.3); NEUTROPHILS # (AUTO) 9.6 K/uL (1.8-7.7); NEUTROPHILS % (AUTO) 77.9 % (40.0-70.0); RED BLOOD CELL COUNT(AUTO) 2.79 MIL/uL (4.2-6.2); RED CELL DISTRIBUTION WIDTH 15.8 % (9.0-15.0); WHITE BLOOD COUNT (AUTO) 12.3 K/uL (4.8-10.8)
[2019-02-20 05:45] LABS: PLATELET COUNT (AUTO) 47 K/uL (130-430)
[2019-02-20 06:10] LABS: ALBUMIN 2.6 g/dL (3.4-4.8); CALCIUM 7.2 mg/dL (8.4-11.0); CREATININE 3.06 mg/dL (0.55-1.30); PHOSPHORUS 4.6 mg/dL (2.7-4.5); TOTAL BILIRUBIN 0.8 mg/dL (0.0-1.0)
[2019-02-20 06:14] LABS: PROTHROMBIN TIME 35.8 SECS (9.5-12.5)
[2019-02-20 06:15] LABS: INR 3.7 (0.80-1.20)
[2019-02-20] MEDS: MAGNESIUM OXIDE 400 MG TABLET PO SCH ×2 (08:41→21:17)
[2019-02-20] MEDS: TACROLIMUS ANHYDROUS 1 MG CAPSULE (PROGRAF) PO SCH ×2 (08:41→21:16)
[2019-02-20] MEDS: FAMOTIDINE 20 MG TABLET PO SCH (08:42)
[2019-02-20] MEDS: MYCOPHENOLATE MOFETIL 250 MG CAPSULE PO SCH ×2 (08:42→17:09)
[2019-02-20] MEDS: FLECAINIDE ACETATE 50 MG TABLET (TAMBOCOR) PO SCH ×2 (08:44→21:17)
[2019-02-20] MEDS: FLUDROCORTISONE ACETATE 0.1 MG TABLET( FLORINEF) PO SCH (08:44)
[2019-02-20] MEDS: TAMSULOSIN HCL 0.4 MG CAP PO SCH (08:44)
[2019-02-20] MEDS: CINACALCET HCL 30 MG TABLET PO SCH (08:45)
[2019-02-20] MEDS: METOPROLOL TARTRATE 25 MG TABLET PO SCH (09:00)
[2019-02-20] MEDS ORDERED: NITROGLYCERIN 1 INCH (GM) OINT. TP ONE (09:30)
[2019-02-20] MEDS: VANCOMYCIN HCL ORAL SOLUTION 250 MG/5 ML, 80 ML PO SCH ×4 (09:40→21:18)
[2019-02-20] MEDS: CEFEPIME 2 GM in D5W 100 ML IV SCH (11:42)
[2019-02-20] MEDS: NITROGLYCERIN 1 INCH (GM) OINT. TP SCH ×2 (13:09→21:20)
[2019-02-20 14:47] LABS: BILIRUBIN,URINE NEGATIVE (NEGATIVE); BLOOD, URINE 3+ (NEGATIVE); CLARITY/URINE SL CLOUDY (CLEAR); COLOR,URINE YELLOW (YELLOW); GLUCOSE,URINE NEGATIVE (NEGATIVE); KETONES,URINE NEGATIVE (NEGATIVE); LEUKOCYTE ESTERASE ,URINE NEGATIVE (NEGATIVE); NITRITE, URINE POSITIVE (NEGATIVE); PH,URINE 5.5 (5.0-8.0); PROTEIN URINE TRACE (NEGATIVE); UROBILINOGEN,URINE 0.2 (0.2-1.0)
[2019-02-20 15:05] LABS: BACTERIA,URINE MODERATE /HPF (None Seen); RBC,URINE 50-80 /HPF (0-3); WBC,URINE 0-3 /HPF (0-3)
[2019-02-20 15:06] LABS: COARSE GRANULAR CASTS,URINE 0-10 /LPF (None Seen); MUCUS,URINE None Seen /LPF (None Seen)
[2019-02-21] VITALS (34 sets, daily range): BP systolic 81–151
[2019-02-21] MEDS: metroNIDAZOLE 500 mg/NS 100 ML IV SCH ×3 (01:29→18:18)
[2019-02-21] MEDS: IPRATROPIUM BROM 0.5 MG/2.5 ML VIAL.NEB (ATROVENT) INH SCH ×6 (02:50→23:33)
[2019-02-21] MEDS: ALBUTEROL SULFATE 0.083% 2.5 MG/3 ML VIAL.NEB INH SCH ×6 (02:51→23:33)
[2019-02-21] MEDS: HYDROCORTISONE SOD SUCC 100 MG/2 ML VIAL IVP SCH ×3 (05:48→21:44)
[2019-02-21] MEDS: NITROGLYCERIN 1 INCH (GM) OINT. TP SCH ×3 (05:48→21:45)
[2019-02-21] MEDS: PROPOFOL DRIP 100 ML IV PRN ×2 (06:07→15:05)
[2019-02-21] MEDS ORDERED: BISA5TAB10 (06:50)
[2019-02-21] MEDS ORDERED: ASCO500T20 PO (06:50)
[2019-02-21] MEDS ORDERED: ASPI-1153 PO (06:50)
[2019-02-21 07:23] LABS: BASOPHILS % (AUTO) 0.1 % (0.0-2.0); EOSINOPHILS % (AUTO) 0.1 % (0.0-4.0); HEMOGLOBIN 8.1 g/dL (14.0-18.0); LYMPHOCYTES # (AUTO) 0.4 K/uL (1.0-5.5); LYMPHOCYTES % (AUTO) 4.6 % (20.5-51.5); MEAN CORPUSCULAR HEMOGLOBIN 30 pg (27-31); MEAN CORPUSCULAR HGB CONC 35 % (32-36); MEAN CORPUSCULAR VOLUME 86 fL (79.0-98.0); MONOCYTES # (AUTO) 2.1 K/uL (0.0-1.0); MONOCYTES % (AUTO) 26.6 % (1.7-9.3); NEUTROPHILS # (AUTO) 5.6 K/uL (1.8-7.7); NEUTROPHILS % (AUTO) 68.6 % (40.0-70.0); RED BLOOD CELL COUNT(AUTO) 2.68 MIL/uL (4.2-6.2); WHITE BLOOD COUNT (AUTO) 8.1 K/uL (4.8-10.8)
[2019-02-21 07:37] LABS: PLATELET COUNT (AUTO) 44 K/uL (130-430)
[2019-02-21 07:38] LABS: INR 2.2 (0.80-1.20)
[2019-02-21 07:47] LABS: CALCIUM 7.7 mg/dL (8.4-11.0); CREATININE 2.74 mg/dL (0.55-1.30); POTASSIUM 3.8 mmol/L (3.5-5.1)
[2019-02-21 07:48] LABS: ALBUMIN 2.2 g/dL (3.4-4.8); TOTAL BILIRUBIN 0.9 mg/dL (0.0-1.0)
[2019-02-21 08:14] LABS: PROTHROMBIN TIME 21.6 SECS (9.5-12.5)
[2019-02-21] MEDS: METOPROLOL TARTRATE 25 MG TABLET PO SCH (09:00)
[2019-02-21] MEDS: TACROLIMUS ANHYDROUS 1 MG CAPSULE (PROGRAF) PO SCH (09:21)
[2019-02-21] MEDS: MYCOPHENOLATE MOFETIL 250 MG CAPSULE PO SCH ×2 (09:21→18:18)
[2019-02-21] MEDS: FAMOTIDINE 20 MG TABLET PO SCH (09:21)
[2019-02-21] MEDS: CINACALCET HCL 30 MG TABLET PO SCH (09:21)
[2019-02-21] MEDS: TAMSULOSIN HCL 0.4 MG CAP PO SCH (09:21)
[2019-02-21] MEDS: FLUDROCORTISONE ACETATE 0.1 MG TABLET( FLORINEF) PO SCH (09:22)
[2019-02-21] MEDS: FLECAINIDE ACETATE 50 MG TABLET (TAMBOCOR) PO SCH ×2 (09:22→21:47)
[2019-02-21] MEDS: MAGNESIUM OXIDE 400 MG TABLET PO SCH ×2 (09:22→21:45)
[2019-02-21] MEDS: VANCOMYCIN HCL ORAL SOLUTION 250 MG/5 ML, 80 ML PO SCH ×4 (09:23→21:43)
[2019-02-21] MEDS: CEFEPIME 2 GM in D5W 100 ML IV SCH (11:29)
[2019-02-21] MEDS: LORazepam 2 MG/ML VIAL IVP PRN ×3 (12:20→23:18)
[2019-02-21] MEDS: NOREPINEPHRINE BITARTRATE 8 MG in D5W 242 ML IV PRN (23:55)
[2019-02-22] VITALS (27 sets, daily range): BP systolic 86–149
[2019-02-22] MEDS ORDERED: ALBUMIN HUMAN 25% 50 ML IV SCH (00:45)
[2019-02-22] MEDS: SODIUM BICARBONATE 8.4% JECT 150 MEQ in D5W 1,000 ML IV SCH ×2 (02:00→12:17)
[2019-02-22] MEDS: metroNIDAZOLE 500 mg/NS 100 ML IV SCH ×3 (02:07→17:51)
[2019-02-22] MEDS: PROPOFOL DRIP 100 ML IV PRN ×4 (02:12→17:54)
[2019-02-22] MEDS: IPRATROPIUM BROM 0.5 MG/2.5 ML VIAL.NEB (ATROVENT) INH SCH ×4 (03:48→23:11)
[2019-02-22] MEDS: ALBUTEROL SULFATE 0.083% 2.5 MG/3 ML VIAL.NEB INH SCH ×4 (03:48→23:10)
[2019-02-22] MEDS: HYDROCORTISONE SOD SUCC 100 MG/2 ML VIAL IVP SCH ×3 (06:27→21:44)
[2019-02-22] MEDS: NITROGLYCERIN 1 INCH (GM) OINT. TP SCH ×3 (06:28→21:43)
[2019-02-22 06:36] LABS: HEMATOCRIT 25.5 % (36-54); HEMOGLOBIN 8.9 g/dL (14.0-18.0); MEAN CORPUSCULAR HEMOGLOBIN 30 pg (27-31); MEAN CORPUSCULAR HGB CONC 35 % (32-36); MEAN CORPUSCULAR VOLUME 86 fL (79.0-98.0); PLATELET COUNT (AUTO) 56 K/uL (130-430); RED BLOOD CELL COUNT(AUTO) 2.96 MIL/uL (4.2-6.2); RED CELL DISTRIBUTION WIDTH 15.8 % (9.0-15.0); WHITE BLOOD COUNT (AUTO) 13.2 K/uL (4.8-10.8)
[2019-02-22 06:52] LABS: INR 1.5 (0.80-1.20); PROTHROMBIN TIME 14.6 SECS (9.5-12.5)
[2019-02-22 07:08] LABS: ALBUMIN 2.4 g/dL (3.4-4.8); CREATININE 2.14 mg/dL (0.55-1.30); POTASSIUM 3.6 mmol/L (3.5-5.1)
[2019-02-22 08:14] LABS: ATYPICAL LYMPHOCYTES % 9 % (0-0); BAND % (MANUAL) 9 % (0-6); BASOPHILS % (MANUAL) 0 % (0-2); EOSINOPHILS % (MANUAL) 0 % (0-7); LYMPHOCYTES % (MANUAL) 9 % (20-46); METAMYELOCYTES % 1 % (0-0); MONOCYTES % (MANUAL) 14 % (0-11); MYELOCYTES % 3 % (0-0)
[2019-02-22] MEDS: MYCOPHENOLATE MOFETIL 250 MG CAPSULE PO SCH ×2 (09:41→17:51)
[2019-02-22] MEDS: CINACALCET HCL 30 MG TABLET PO SCH (09:42)
[2019-02-22] MEDS: METOPROLOL TARTRATE 25 MG TABLET PO SCH (09:42)
[2019-02-22] MEDS: TACROLIMUS ANHYDROUS 1 MG CAPSULE (PROGRAF) PO SCH ×2 (09:43→21:45)
[2019-02-22] MEDS: FLUDROCORTISONE ACETATE 0.1 MG TABLET( FLORINEF) PO SCH (09:46)
[2019-02-22] MEDS: FAMOTIDINE 20 MG TABLET PO SCH (09:46)
[2019-02-22] MEDS: TAMSULOSIN HCL 0.4 MG CAP PO SCH (09:46)
[2019-02-22] MEDS: MAGNESIUM OXIDE 400 MG TABLET PO SCH ×2 (09:46→21:46)
[2019-02-22] MEDS: FLECAINIDE ACETATE 50 MG TABLET (TAMBOCOR) PO SCH ×2 (09:47→21:44)
[2019-02-22] MEDS: VANCOMYCIN HCL ORAL SOLUTION 250 MG/5 ML, 80 ML PO SCH ×4 (09:51→21:42)
[2019-02-22] MEDS: LORazepam 2 MG/ML VIAL IVP PRN (10:02)
[2019-02-22] MEDS: CEFEPIME 2 GM in D5W 100 ML IV SCH (11:13)
[2019-02-22] MEDS: NOREPINEPHRINE BITARTRATE 4 MG in D5W 246 ML IV PRN (12:18)
[2019-02-22 16:12] LABS: HAPTOGLOBIN 165 mg/dL (34-200)
[2019-02-22] MEDS ORDERED: WARFARIN SODIUM 1 MG TABLET PO SCH (18:00)
[2019-02-22] MEDS: MORPHINE 2 MG/ML INJ. SYRINGE IVP PRN (23:09)
[2019-02-23] VITALS (25 sets, daily range): BP systolic 101–136
[2019-02-23] MEDS: metroNIDAZOLE 500 mg/NS 100 ML IV SCH (02:13)
[2019-02-23] MEDS: PROPOFOL DRIP 100 ML IV PRN ×4 (02:23→20:27)
[2019-02-23] MEDS: NOREPINEPHRINE BITARTRATE 4 MG in D5W 246 ML IV PRN ×2 (02:31→20:18)
[2019-02-23] MEDS: ALBUTEROL SULFATE 0.083% 2.5 MG/3 ML VIAL.NEB INH SCH ×6 (03:00→23:00)
[2019-02-23] MEDS: IPRATROPIUM BROM 0.5 MG/2.5 ML VIAL.NEB (ATROVENT) INH SCH ×6 (03:00→23:00)
[2019-02-23] MEDS: IPRATROPIUM BROM 0.5 MG/2.5 ML VIAL.NEB (ATROVENT) INH PRN (04:53)
[2019-02-23] MEDS: ALBUTEROL SULFATE 0.083% 2.5 MG/3 ML VIAL.NEB INH PRN (04:54)
[2019-02-23] MEDS: HYDROCORTISONE SOD SUCC 100 MG/2 ML VIAL IVP SCH ×2 (06:23→18:02)
[2019-02-23 06:37] LABS: HEMATOCRIT 26.3 % (36-54); HEMOGLOBIN 9.1 g/dL (14.0-18.0); MEAN CORPUSCULAR HEMOGLOBIN 30 pg (27-31); MEAN CORPUSCULAR HGB CONC 35 % (32-36); MEAN CORPUSCULAR VOLUME 86 fL (79.0-98.0); PLATELET COUNT (AUTO) 83 K/uL (130-430); RED BLOOD CELL COUNT(AUTO) 3.05 MIL/uL (4.2-6.2); RED CELL DISTRIBUTION WIDTH 15.8 % (9.0-15.0)
[2019-02-23 06:48] LABS: INR 1.4 (0.80-1.20); PROTHROMBIN TIME 13.8 SECS (9.5-12.5)
[2019-02-23 07:00] LABS: ALBUMIN 2.4 g/dL (3.4-4.8); CREATININE 1.85 mg/dL (0.55-1.30); POTASSIUM 3.6 mmol/L (3.5-5.1); TOTAL BILIRUBIN 0.8 mg/dL (0.0-1.0)
[2019-02-23 07:24] LABS: WHITE BLOOD COUNT (AUTO) 23.2 K/uL (4.8-10.8)
[2019-02-23] MEDS: METOPROLOL TARTRATE 25 MG TABLET PO SCH (09:00)
[2019-02-23] MEDS: TAMSULOSIN HCL 0.4 MG CAP PO SCH (09:06)
[2019-02-23] MEDS: MAGNESIUM OXIDE 400 MG TABLET PO SCH ×2 (09:06→20:14)
[2019-02-23] MEDS: FAMOTIDINE 20 MG TABLET PO SCH (09:07)
[2019-02-23] MEDS: MYCOPHENOLATE MOFETIL 250 MG CAPSULE PO SCH ×2 (09:07→18:02)
[2019-02-23] MEDS: CINACALCET HCL 30 MG TABLET PO SCH (09:07)
[2019-02-23] MEDS: TACROLIMUS ANHYDROUS 1 MG CAPSULE (PROGRAF) PO SCH ×2 (09:07→20:14)
[2019-02-23] MEDS: FLUDROCORTISONE ACETATE 0.1 MG TABLET( FLORINEF) PO SCH (09:08)
[2019-02-23] MEDS: FLECAINIDE ACETATE 50 MG TABLET (TAMBOCOR) PO SCH ×2 (09:08→20:15)
[2019-02-23] MEDS: VANCOMYCIN HCL ORAL SOLUTION 250 MG/5 ML, 80 ML PO SCH ×4 (09:48→20:17)
[2019-02-23 10:29] LABS: ATYPICAL LYMPHOCYTES % 4 % (0-0); BAND % (MANUAL) 8 % (0-6); BASOPHILS % (MANUAL) 0 % (0-2); EOSINOPHILS % (MANUAL) 0 % (0-7); LYMPHOCYTES % (MANUAL) 4 % (20-46); MONOCYTES % (MANUAL) 16 % (0-11); MYELOCYTES % 8 % (0-0); PROMYELOCYTES % 8 % (0-0)
[2019-02-23 10:30] LABS: METAMYELOCYTES % 8 % (0-0)
[2019-02-23] MEDS: LORazepam 2 MG/ML VIAL IVP PRN ×3 (10:56→18:02)
[2019-02-23] MEDS: FLUCONAZOLE 100 mg/ NS 50 ML IV SCH (11:05)
[2019-02-23] MEDS: SODIUM BICARBONATE 8.4% JECT 150 MEQ in D5W 1,000 ML IV SCH (11:20)
[2019-02-23] MEDS ORDERED: BUMEX 1 MG/4 ML VIAL IVP ONE (11:30)
[2019-02-23] MEDS: 0.45% NACL 1,000 ML IV SCH (11:54)
[2019-02-23] MEDS: CEFEPIME 2 GM in D5W 100 ML IV SCH (12:06)
[2019-02-23] MEDS: NITROGLYCERIN 1 INCH (GM) OINT. TP SCH ×2 (14:00→21:50)
[2019-02-23] MEDS: metroNIDAZOLE 250 mg/NS 50 ML IV SCH ×2 (14:59→21:49)
[2019-02-23] MEDS: MORPHINE 2 MG/ML INJ. SYRINGE IVP PRN (18:04)
[2019-02-23] MEDS ORDERED: NOREPINEPHRINE 4 MG/4 ML VIAL IV ONE (20:13)
[2019-02-23] MEDS: APIXABAN 2.5 MG TABLET PO SCH (20:16)
[2019-02-24] VITALS (29 sets, daily range): BP systolic 86–136
[2019-02-24] MEDS: ALBUTEROL SULFATE 0.083% 2.5 MG/3 ML VIAL.NEB INH SCH ×6 (03:00→23:00)
[2019-02-24] MEDS: IPRATROPIUM BROM 0.5 MG/2.5 ML VIAL.NEB (ATROVENT) INH SCH ×6 (03:00→23:00)
[2019-02-24] MEDS: PROPOFOL DRIP 100 ML IV PRN (03:08)
[2019-02-24] MEDS: LORazepam 2 MG/ML VIAL IVP PRN ×4 (04:00→22:19)
[2019-02-24] MEDS: metroNIDAZOLE 250 mg/NS 50 ML IV SCH ×3 (05:52→21:22)
[2019-02-24] MEDS: NITROGLYCERIN 1 INCH (GM) OINT. TP SCH ×3 (05:53→21:23)
[2019-02-24 06:04] LABS: HEMATOCRIT 24.2 % (36-54); HEMOGLOBIN 8.5 g/dL (14.0-18.0); MEAN CORPUSCULAR HEMOGLOBIN 31 pg (27-31); MEAN CORPUSCULAR HGB CONC 35 % (32-36); MEAN CORPUSCULAR VOLUME 87 fL (79.0-98.0); PLATELET COUNT (AUTO) 57 K/uL (130-430); RED BLOOD CELL COUNT(AUTO) 2.79 MIL/uL (4.2-6.2); WHITE BLOOD COUNT (AUTO) 12.8 K/uL (4.8-10.8)
[2019-02-24 06:16] LABS: INR 1.4 (0.80-1.20); PROTHROMBIN TIME 14.3 SECS (9.5-12.5)
[2019-02-24 06:23] LABS: ALANINE AMINOTRANSFERASE 9 U/L (12-78); ALBUMIN 2.3 g/dL (3.4-4.8); ASPARTATE AMINOTRANSFERASE 11 U/L (10-37); CALCIUM 8.1 mg/dL (8.4-11.0); CHLORIDE 102 mmol/L (98-107); CREATININE 1.56 mg/dL (0.55-1.30); GLUCOSE 148 mg/dL (70-99); POTASSIUM 3.2 mmol/L (3.5-5.1); SODIUM SERUM 136 mmol/L (136-145); TOTAL BILIRUBIN 0.7 mg/dL (0.0-1.0); UREA NITROGEN, BLOOD 68 mg/dL (8-21)
[2019-02-24] MEDS: HYDROCORTISONE SOD SUCC 100 MG/2 ML VIAL IVP SCH ×2 (06:27→18:13)
[2019-02-24 06:30] LABS: ANION GAP < 3 (5-15); GFR AFRICAN AMERICAN 58 mL/min (>90)
[2019-02-24] MEDS: 0.45% NACL 1,000 ML IV SCH (06:32)
[2019-02-24] MEDS: FAMOTIDINE 20 MG TABLET PO SCH (08:28)
[2019-02-24] MEDS: CINACALCET HCL 30 MG TABLET PO SCH (08:28)
[2019-02-24] MEDS: MYCOPHENOLATE MOFETIL 250 MG CAPSULE PO SCH ×2 (08:28→18:13)
[2019-02-24] MEDS: FLUDROCORTISONE ACETATE 0.1 MG TABLET( FLORINEF) PO SCH (08:28)
[2019-02-24] MEDS: METOPROLOL TARTRATE 25 MG TABLET PO SCH (08:29)
[2019-02-24] MEDS: TAMSULOSIN HCL 0.4 MG CAP PO SCH (08:29)
[2019-02-24] MEDS: MAGNESIUM OXIDE 400 MG TABLET PO SCH (08:29)
[2019-02-24] MEDS: FLECAINIDE ACETATE 50 MG TABLET (TAMBOCOR) PO SCH ×2 (08:29→21:20)
[2019-02-24] MEDS: APIXABAN 2.5 MG TABLET PO SCH ×2 (08:30→21:18)
[2019-02-24] MEDS ORDERED: KCL 40 mEq in 100 mL (PREMIX) 100 ML IV ONE (09:00)
[2019-02-24] MEDS: TACROLIMUS ANHYDROUS 1 MG CAPSULE (PROGRAF) PO SCH ×2 (09:07→21:18)
[2019-02-24] MEDS: VANCOMYCIN HCL ORAL SOLUTION 250 MG/5 ML, 80 ML PO SCH ×4 (09:07→21:16)
[2019-02-24] MEDS: FLUCONAZOLE 100 mg/ NS 50 ML IV SCH (09:07)
[2019-02-24 10:16] LABS: ATYPICAL LYMPHOCYTES % 1 % (0-0); BAND % (MANUAL) 7 % (0-6); LYMPHOCYTES % (MANUAL) 9 % (20-46); MONOCYTES % (MANUAL) 15 % (0-11)
[2019-02-24 10:17] LABS: BASOPHILS % (MANUAL) 0 % (0-2); EOSINOPHILS % (MANUAL) 1 % (0-7); METAMYELOCYTES % 0 % (0-0); MYELOCYTES % 11 % (0-0)
[2019-02-24] MEDS: CEFEPIME 2 GM in D5W 100 ML IV SCH (10:50)
[2019-02-24] MEDS: MORPHINE 2 MG/ML INJ. SYRINGE IVP PRN ×3 (14:06→21:36)
[2019-02-24] MEDS: ACETAMINOPHEN 325 MG TABLET PO PRN (17:04)
[2019-02-24] MEDS: NOREPINEPHRINE BITARTRATE 4 MG in D5W 246 ML IV PRN (21:41)
[2019-02-25] VITALS (32 sets, daily range): BP systolic 93–136
[2019-02-25] MEDS: LORazepam 2 MG/ML VIAL IVP PRN ×7 (01:44→23:15)
[2019-02-25] MEDS ORDERED: ACETAMINOPHEN 650 MG/20.3 ML UDC ONE (04:17)
[2019-02-25] MEDS: ACETAMINOPHEN 325 MG TABLET PO PRN (04:17)
[2019-02-25] MEDS: MORPHINE 2 MG/ML INJ. SYRINGE IVP PRN ×3 (04:59→20:36)
[2019-02-25 05:37] LABS: BASOPHILS % (AUTO) 0.3 % (0.0-2.0); EOSINOPHILS % (AUTO) 0.3 % (0.0-4.0); HEMATOCRIT 24.2 % (36-54); HEMOGLOBIN 8.2 g/dL (14.0-18.0); LYMPHOCYTES # (AUTO) 0.8 K/uL (1.0-5.5); LYMPHOCYTES % (AUTO) 5.1 % (20.5-51.5); MEAN CORPUSCULAR HEMOGLOBIN 30 pg (27-31); MEAN CORPUSCULAR HGB CONC 34 % (32-36); MEAN CORPUSCULAR VOLUME 88 fL (79.0-98.0); NEUTROPHILS # (AUTO) 10.1 K/uL (1.8-7.7); NEUTROPHILS % (AUTO) 63.3 % (40.0-70.0); PLATELET COUNT (AUTO) 51 K/uL (130-430); RED BLOOD CELL COUNT(AUTO) 2.76 MIL/uL (4.2-6.2); RED CELL DISTRIBUTION WIDTH 16.1 % (9.0-15.0)
[2019-02-25] MEDS: NITROGLYCERIN 1 INCH (GM) OINT. TP SCH (05:57)
[2019-02-25 06:00] LABS: INR 1.5 (0.80-1.20); PROTHROMBIN TIME 14.7 SECS (9.5-12.5)
[2019-02-25 06:02] LABS: ALBUMIN 2.1 g/dL (3.4-4.8); CALCIUM 8.2 mg/dL (8.4-11.0); CREATININE 1.2 mg/dL (0.55-1.30); POTASSIUM 3.4 mmol/L (3.5-5.1); TOTAL BILIRUBIN 0.7 mg/dL (0.0-1.0)
[2019-02-25] MEDS: metroNIDAZOLE 250 mg/NS 50 ML IV SCH ×3 (06:03→21:11)
[2019-02-25] MEDS: 0.45% NACL 1,000 ML IV SCH (06:04)
[2019-02-25] MEDS: HYDROCORTISONE SOD SUCC 100 MG/2 ML VIAL IVP SCH ×2 (06:37→18:25)
[2019-02-25] MEDS: ALBUTEROL SULFATE 0.083% 2.5 MG/3 ML VIAL.NEB INH SCH ×4 (07:28→19:53)
[2019-02-25] MEDS: IPRATROPIUM BROM 0.5 MG/2.5 ML VIAL.NEB (ATROVENT) INH SCH ×4 (07:28→19:53)
[2019-02-25] MEDS: VANCOMYCIN HCL ORAL SOLUTION 250 MG/5 ML, 80 ML PO SCH ×4 (08:09→20:40)
[2019-02-25] MEDS: TAMSULOSIN HCL 0.4 MG CAP PO SCH (08:09)
[2019-02-25] MEDS: METOPROLOL TARTRATE 25 MG TABLET PO SCH (08:10)
[2019-02-25] MEDS: FLUDROCORTISONE ACETATE 0.1 MG TABLET( FLORINEF) PO SCH (08:10)
[2019-02-25] MEDS: FAMOTIDINE 20 MG TABLET PO SCH (08:10)
[2019-02-25] MEDS: FLECAINIDE ACETATE 50 MG TABLET (TAMBOCOR) PO SCH ×2 (08:11→20:44)
[2019-02-25] MEDS: CINACALCET HCL 30 MG TABLET PO SCH (08:12)
[2019-02-25] MEDS: TACROLIMUS ANHYDROUS 1 MG CAPSULE (PROGRAF) PO SCH ×2 (08:12→20:40)
[2019-02-25] MEDS: MYCOPHENOLATE MOFETIL 250 MG CAPSULE PO SCH ×2 (08:12→17:16)
[2019-02-25] MEDS: APIXABAN 2.5 MG TABLET PO SCH ×2 (08:13→20:42)
[2019-02-25] MEDS ORDERED: POTASSIUM CHLORIDE 20 MEQ/PKT PACKET PO ONE (10:00)
[2019-02-25] MEDS: FLUCONAZOLE 100 mg/ NS 50 ML IV SCH (10:27)
[2019-02-25] MEDS: CEFEPIME 1 GM in D5W 50 ML IV SCH (13:30)
[2019-02-25] MEDS ORDERED: LORazepam 2 MG/ML VIAL ONE (22:02)
[2019-02-26] VITALS (33 sets, daily range): BP systolic 88–140
[2019-02-26] MEDS: LORazepam 2 MG/ML VIAL IVP PRN ×6 (01:54→19:06)
[2019-02-26] MEDS: metroNIDAZOLE 250 mg/NS 50 ML IV SCH ×3 (05:20→21:30)
[2019-02-26] MEDS: 0.45% NACL 1,000 ML IV SCH (05:20)
[2019-02-26 06:03] LABS: BASOPHILS % (AUTO) 0.2 % (0.0-2.0); EOSINOPHILS % (AUTO) 0.2 % (0.0-4.0); HEMOGLOBIN 7.2 g/dL (14.0-18.0); LYMPHOCYTES # (AUTO) 0.7 K/uL (1.0-5.5); LYMPHOCYTES % (AUTO) 5.7 % (20.5-51.5); MEAN CORPUSCULAR HEMOGLOBIN 30 pg (27-31); MEAN CORPUSCULAR HGB CONC 35 % (32-36); MEAN CORPUSCULAR VOLUME 88 fL (79.0-98.0); MONOCYTES # (AUTO) 3.1 K/uL (0.0-1.0); MONOCYTES % (AUTO) 24.3 % (1.7-9.3); NEUTROPHILS # (AUTO) 8.8 K/uL (1.8-7.7); RED BLOOD CELL COUNT(AUTO) 2.36 MIL/uL (4.2-6.2); RED CELL DISTRIBUTION WIDTH 16.1 % (9.0-15.0); WHITE BLOOD COUNT (AUTO) 12.7 K/uL (4.8-10.8)
[2019-02-26] MEDS: HYDROCORTISONE SOD SUCC 100 MG/2 ML VIAL IVP SCH ×2 (06:22→19:07)
[2019-02-26] MEDS: NOREPINEPHRINE BITARTRATE 4 MG in D5W 246 ML IV PRN (06:23)
[2019-02-26 06:25] LABS: ALBUMIN 2.3 g/dL (3.4-4.8); CALCIUM 8.2 mg/dL (8.4-11.0); CREATININE 1.09 mg/dL (0.55-1.30); PHOSPHORUS 2.5 mg/dL (2.7-4.5); POTASSIUM 3.3 mmol/L (3.5-5.1); TOTAL BILIRUBIN 0.7 mg/dL (0.0-1.0)
[2019-02-26 06:30] LABS: INR 1.4 (0.80-1.20); PROTHROMBIN TIME 14.4 SECS (9.5-12.5)
[2019-02-26] MEDS: ALBUTEROL SULFATE 0.083% 2.5 MG/3 ML VIAL.NEB INH SCH ×4 (07:30→19:48)
[2019-02-26] MEDS: IPRATROPIUM BROM 0.5 MG/2.5 ML VIAL.NEB (ATROVENT) INH SCH ×4 (07:30→19:47)
[2019-02-26 08:32] LABS: HEMATOCRIT 20.8 % (36-54)
[2019-02-26 08:33] LABS: PLATELET COUNT (AUTO) 45 K/uL (130-430)
[2019-02-26] MEDS: METOPROLOL TARTRATE 25 MG TABLET PO SCH (09:00)
[2019-02-26] MEDS ORDERED: POTASSIUM CHLORIDE 20 MEQ/PKT PACKET PO ONE (09:15)
[2019-02-26] MEDS ORDERED: BUMETANIDE 0.25 MG/ML; 10 ML VIAL IVP ONE (09:15)
[2019-02-26] MEDS: FAMOTIDINE 20 MG TABLET PO SCH (09:22)
[2019-02-26] MEDS: CINACALCET HCL 30 MG TABLET PO SCH (09:22)
[2019-02-26] MEDS: MYCOPHENOLATE MOFETIL 250 MG CAPSULE PO SCH ×2 (09:22→17:04)
[2019-02-26] MEDS: TAMSULOSIN HCL 0.4 MG CAP PO SCH (09:22)
[2019-02-26] MEDS: TACROLIMUS ANHYDROUS 1 MG CAPSULE (PROGRAF) PO SCH ×2 (09:23→21:27)
[2019-02-26] MEDS: FLECAINIDE ACETATE 50 MG TABLET (TAMBOCOR) PO SCH ×2 (09:25→21:27)
[2019-02-26] MEDS: APIXABAN 2.5 MG TABLET PO SCH ×2 (09:26→21:31)
[2019-02-26] MEDS: VANCOMYCIN HCL ORAL SOLUTION 250 MG/5 ML, 80 ML PO SCH ×4 (09:27→21:28)
[2019-02-26] MEDS ORDERED: BUMEX 1 MG/4 ML VIAL IVP ONE (09:30)
[2019-02-26] MEDS: FLUCONAZOLE 100 mg/ NS 50 ML IV SCH (09:37)
[2019-02-26 10:34] LABS: NEUTROPHILS % (AUTO) 69.6 % (40.0-70.0)
[2019-02-26] MEDS: CEFEPIME 1 GM in D5W 50 ML IV SCH (12:15)
[2019-02-26 12:42] LABS: BASOPHILS % (AUTO) 0.2 % (0.0-2.0); EOSINOPHILS % (AUTO) 0.1 % (0.0-4.0); HEMOGLOBIN 7.3 g/dL (14.0-18.0); LYMPHOCYTES # (AUTO) 0.6 K/uL (1.0-5.5); MEAN CORPUSCULAR HEMOGLOBIN 31 pg (27-31); MEAN CORPUSCULAR HGB CONC 35 % (32-36); MEAN CORPUSCULAR VOLUME 89 fL (79.0-98.0); NEUTROPHILS % (AUTO) 74.7 % (40.0-70.0); RED BLOOD CELL COUNT(AUTO) 2.37 MIL/uL (4.2-6.2); RED CELL DISTRIBUTION WIDTH 15.9 % (9.0-15.0); WHITE BLOOD COUNT (AUTO) 10.6 K/uL (4.8-10.8)
[2019-02-26] MEDS: MORPHINE 2 MG/ML INJ. SYRINGE IVP PRN (12:55)
[2019-02-26 12:56] LABS: PLATELET COUNT (AUTO) 40 K/uL (130-430)
[2019-02-26] MEDS ORDERED: NOREPINEPHRINE BITARTRATE 4 MG in D5W 246 ML IV PRN (20:45)
[2019-02-27] VITALS (32 sets, daily range): BP systolic 68–199
[2019-02-27] MEDS: LORazepam 2 MG/ML VIAL IVP PRN ×2 (04:20→21:31)
[2019-02-27 05:34] LABS: BASOPHILS % (AUTO) 0.3 % (0.0-2.0); EOSINOPHILS % (AUTO) 0.2 % (0.0-4.0); LYMPHOCYTES # (AUTO) 0.4 K/uL (1.0-5.5); LYMPHOCYTES % (AUTO) 5.7 % (20.5-51.5); MEAN CORPUSCULAR HEMOGLOBIN 31 pg (27-31); MEAN CORPUSCULAR HGB CONC 34 % (32-36); MEAN CORPUSCULAR VOLUME 89 fL (79.0-98.0); MONOCYTES # (AUTO) 1.8 K/uL (0.0-1.0); MONOCYTES % (AUTO) 23.7 % (1.7-9.3); NEUTROPHILS # (AUTO) 5.4 K/uL (1.8-7.7); NEUTROPHILS % (AUTO) 70.1 % (40.0-70.0); RED BLOOD CELL COUNT(AUTO) 2.06 MIL/uL (4.2-6.2); RED CELL DISTRIBUTION WIDTH 16.2 % (9.0-15.0); WHITE BLOOD COUNT (AUTO) 7.7 K/uL (4.8-10.8)
[2019-02-27 05:47] LABS: HEMATOCRIT 18.3 % (36-54); HEMOGLOBIN 6.3 g/dL (14.0-18.0); PLATELET COUNT (AUTO) 36 K/uL (130-430)
[2019-02-27 05:51] LABS: ALBUMIN 2.2 g/dL (3.4-4.8); CALCIUM 8.2 mg/dL (8.4-11.0); CREATININE 0.89 mg/dL (0.55-1.30); PHOSPHORUS 2.4 mg/dL (2.7-4.5); POTASSIUM 3.2 mmol/L (3.5-5.1); TOTAL BILIRUBIN 0.6 mg/dL (0.0-1.0)
[2019-02-27] MEDS: metroNIDAZOLE 250 mg/NS 50 ML IV SCH ×3 (05:51→21:17)
[2019-02-27] MEDS: 0.45% NACL 1,000 ML IV SCH ×3 (05:52→21:22)
[2019-02-27] MEDS: HYDROCORTISONE SOD SUCC 100 MG/2 ML VIAL IVP SCH ×2 (06:28→18:12)
[2019-02-27 07:37] LABS: BASOPHILS % (AUTO) 0.5 % (0.0-2.0); EOSINOPHILS % (AUTO) 0.2 % (0.0-4.0); LYMPHOCYTES # (AUTO) 0.5 K/uL (1.0-5.5); LYMPHOCYTES % (AUTO) 5.5 % (20.5-51.5); MEAN CORPUSCULAR HEMOGLOBIN 31 pg (27-31); MEAN CORPUSCULAR HGB CONC 34 % (32-36); MEAN CORPUSCULAR VOLUME 89 fL (79.0-98.0); MONOCYTES % (AUTO) 23.6 % (1.7-9.3); NEUTROPHILS # (AUTO) 5.9 K/uL (1.8-7.7); NEUTROPHILS % (AUTO) 70.2 % (40.0-70.0); RED CELL DISTRIBUTION WIDTH 16.9 % (9.0-15.0); WHITE BLOOD COUNT (AUTO) 8.5 K/uL (4.8-10.8)
[2019-02-27 07:46] LABS: HEMATOCRIT 19.9 % (36-54); HEMOGLOBIN 6.8 g/dL (14.0-18.0)
[2019-02-27] MEDS: IPRATROPIUM BROM 0.5 MG/2.5 ML VIAL.NEB (ATROVENT) INH SCH ×4 (07:46→19:45)
[2019-02-27] MEDS: ALBUTEROL SULFATE 0.083% 2.5 MG/3 ML VIAL.NEB INH SCH ×4 (07:46→19:45)
[2019-02-27] MEDS: PANTOPRAZOLE SODIUM 40 MG/VIAL (PROTONIX) IVP SCH ×2 (08:58→21:38)
[2019-02-27] MEDS: VANCOMYCIN HCL ORAL SOLUTION 250 MG/5 ML, 80 ML PO SCH ×4 (08:58→21:33)
[2019-02-27] MEDS: FLECAINIDE ACETATE 50 MG TABLET (TAMBOCOR) PO SCH ×2 (08:59→20:51)
[2019-02-27] MEDS: METOPROLOL TARTRATE 25 MG TABLET PO SCH (09:00)
[2019-02-27] MEDS ORDERED: KCL 40 mEq in 100 mL (PREMIX) 100 ML IV ONE (09:00)
[2019-02-27] MEDS: APIXABAN 2.5 MG TABLET PO SCH ×2 (09:00→20:48)
[2019-02-27] MEDS: FAMOTIDINE 20 MG TABLET PO SCH (09:01)
[2019-02-27] MEDS: TAMSULOSIN HCL 0.4 MG CAP PO SCH (09:01)
[2019-02-27 09:03] LABS: RED BLOOD CELL COUNT(AUTO) 2.23 MIL/uL (4.2-6.2)
[2019-02-27 09:05] LABS: PLATELET COUNT (AUTO) 39 K/uL (130-430)
[2019-02-27] MEDS: TACROLIMUS ANHYDROUS 1 MG CAPSULE (PROGRAF) PO SCH ×2 (09:06→20:50)
[2019-02-27] MEDS: MYCOPHENOLATE MOFETIL 250 MG CAPSULE PO SCH ×2 (09:06→17:40)
[2019-02-27] MEDS: CINACALCET HCL 30 MG TABLET PO SCH (09:06)
[2019-02-27] MEDS: FLUCONAZOLE 100 mg/ NS 50 ML IV SCH (10:43)
[2019-02-27] MEDS: MORPHINE 2 MG/ML INJ. SYRINGE IVP PRN ×2 (11:12→20:41)
[2019-02-27] MEDS: CEFEPIME 1 GM in D5W 50 ML IV SCH (11:58)
[2019-02-27] MEDS ORDERED: POTASSIUM CHLORIDE 20 MEQ/PKT PACKET PO ONE (15:00)
[2019-02-27] MEDS ORDERED: BUMEX 1 MG/4 ML VIAL IVP ONE (15:00)
[2019-02-27] MEDS ORDERED: MAGNESIUM SULFATE 50 ML IV ONE (15:00)
[2019-02-27] MEDS ORDERED: ENALAPRILAT DIHYDRATE 1.25 MG/ML VIAL ONE (15:08)
[2019-02-28] VITALS (33 sets, daily range): BP systolic 94–177
[2019-02-28] MEDS: ENALAPRILAT DIHYDRATE 1.25 MG/ML VIAL IVP PRN (04:41)
[2019-02-28 05:03] LABS: BASOPHILS % (AUTO) 0.3 % (0.0-2.0); EOSINOPHILS % (AUTO) 0.1 % (0.0-4.0); HEMATOCRIT 23.3 % (36-54); LYMPHOCYTES # (AUTO) 0.4 K/uL (1.0-5.5); LYMPHOCYTES % (AUTO) 4.9 % (20.5-51.5); MEAN CORPUSCULAR HEMOGLOBIN 31 pg (27-31); MEAN CORPUSCULAR HGB CONC 34 % (32-36); MEAN CORPUSCULAR VOLUME 89 fL (79.0-98.0); MONOCYTES # (AUTO) 1.8 K/uL (0.0-1.0); MONOCYTES % (AUTO) 21.2 % (1.7-9.3); NEUTROPHILS # (AUTO) 6.4 K/uL (1.8-7.7); NEUTROPHILS % (AUTO) 73.5 % (40.0-70.0); RED BLOOD CELL COUNT(AUTO) 2.62 MIL/uL (4.2-6.2); RED CELL DISTRIBUTION WIDTH 16.6 % (9.0-15.0); WHITE BLOOD COUNT (AUTO) 8.7 K/uL (4.8-10.8)
[2019-02-28 05:07] LABS: PLATELET COUNT (AUTO) 34 K/uL (130-430)
[2019-02-28 05:27] LABS: ALBUMIN 2.5 g/dL (3.4-4.8); CALCIUM 8.2 mg/dL (8.4-11.0); CREATININE 0.84 mg/dL (0.55-1.30); POTASSIUM 3.5 mmol/L (3.5-5.1)
[2019-02-28] MEDS: metroNIDAZOLE 250 mg/NS 50 ML IV SCH ×3 (05:43→22:06)
[2019-02-28] MEDS: LORazepam 2 MG/ML VIAL IVP PRN ×4 (06:37→18:18)
[2019-02-28] MEDS: HYDROCORTISONE SOD SUCC 100 MG/2 ML VIAL IVP SCH ×2 (06:43→18:18)
[2019-02-28] MEDS: ALBUTEROL SULFATE 0.083% 2.5 MG/3 ML VIAL.NEB INH SCH ×5 (07:23→23:25)
[2019-02-28] MEDS: IPRATROPIUM BROM 0.5 MG/2.5 ML VIAL.NEB (ATROVENT) INH SCH ×5 (07:23→23:25)
[2019-02-28] MEDS: TAMSULOSIN HCL 0.4 MG CAP PO SCH (09:28)
[2019-02-28] MEDS: VANCOMYCIN HCL ORAL SOLUTION 250 MG/5 ML, 80 ML PO SCH ×4 (09:28→21:10)
[2019-02-28] MEDS: CINACALCET HCL 30 MG TABLET PO SCH (09:29)
[2019-02-28] MEDS: MYCOPHENOLATE MOFETIL 250 MG CAPSULE PO SCH ×2 (09:29→18:18)
[2019-02-28] MEDS: TACROLIMUS ANHYDROUS 1 MG CAPSULE (PROGRAF) PO SCH ×2 (09:29→21:11)
[2019-02-28] MEDS: FLECAINIDE ACETATE 50 MG TABLET (TAMBOCOR) PO SCH ×2 (09:30→21:10)
[2019-02-28] MEDS: FAMOTIDINE 20 MG TABLET PO SCH (09:30)
[2019-02-28] MEDS: PANTOPRAZOLE SODIUM 40 MG/VIAL (PROTONIX) IVP SCH ×2 (09:30→21:10)
[2019-02-28] MEDS: METOPROLOL TARTRATE 25 MG TABLET PO SCH (09:33)
[2019-02-28] MEDS: APIXABAN 2.5 MG TABLET PO SCH (09:34)
[2019-02-28] MEDS: FLUCONAZOLE 100 mg/ NS 50 ML IV SCH (09:48)
[2019-02-28] MEDS: ACETAMINOPHEN 325 MG TABLET PO PRN (09:48)
[2019-02-28] MEDS ORDERED: BUMEX 1 MG/4 ML VIAL IVP ONE (10:15)
[2019-02-28] MEDS ORDERED: K PHOS 15 MM in NS 250 ML IV ONE (10:15)
[2019-02-28] MEDS: CEFEPIME 1 GM in D5W 50 ML IV SCH (11:29)
[2019-02-28] MEDS: FERROUS SULFATE 300 MG/5 ML UDC GT SCH (21:09)
[2019-02-28] MEDS: 0.45% NACL 1,000 ML IV SCH (21:12)
[2019-02-28] MEDS: MORPHINE 2 MG/ML INJ. SYRINGE IVP PRN (22:05)
[2019-03-01] VITALS (33 sets, daily range): BP systolic 102–182
[2019-03-01] MEDS: LORazepam 2 MG/ML VIAL IVP PRN ×5 (01:18→21:23)
[2019-03-01] MEDS: ENALAPRILAT DIHYDRATE 1.25 MG/ML VIAL IVP PRN (04:19)
[2019-03-01] MEDS: MORPHINE 2 MG/ML INJ. SYRINGE IVP PRN ×2 (04:20→08:42)
[2019-03-01 06:02] LABS: BASOPHILS % (AUTO) 0.3 % (0.0-2.0); EOSINOPHILS % (AUTO) 0.3 % (0.0-4.0); LYMPHOCYTES # (AUTO) 0.4 K/uL (1.0-5.5); LYMPHOCYTES % (AUTO) 7.6 % (20.5-51.5); MEAN CORPUSCULAR HEMOGLOBIN 31 pg (27-31); MEAN CORPUSCULAR HGB CONC 34 % (32-36); MEAN CORPUSCULAR VOLUME 90 fL (79.0-98.0); MONOCYTES # (AUTO) 1.3 K/uL (0.0-1.0); MONOCYTES % (AUTO) 25.6 % (1.7-9.3); NEUTROPHILS # (AUTO) 3.4 K/uL (1.8-7.7); NEUTROPHILS % (AUTO) 66.2 % (40.0-70.0); RED BLOOD CELL COUNT(AUTO) 2.28 MIL/uL (4.2-6.2); RED CELL DISTRIBUTION WIDTH 16.9 % (9.0-15.0); WHITE BLOOD COUNT (AUTO) 5.1 K/uL (4.8-10.8)
[2019-03-01] MEDS: metroNIDAZOLE 250 mg/NS 50 ML IV SCH ×3 (06:12→21:22)
[2019-03-01] MEDS: HYDROCORTISONE SOD SUCC 100 MG/2 ML VIAL IVP SCH ×2 (06:12→18:01)
[2019-03-01 06:31] LABS: ALANINE AMINOTRANSFERASE 10 U/L (12-78); ALBUMIN 2.2 g/dL (3.4-4.8); ASPARTATE AMINOTRANSFERASE 11 U/L (10-37); CHLORIDE 109 mmol/L (98-107); CREATININE 0.93 mg/dL (0.55-1.30); GLUCOSE 127 mg/dL (70-99); POTASSIUM 3.5 mmol/L (3.5-5.1); SODIUM SERUM 139 mmol/L (136-145); UREA NITROGEN, BLOOD 31 mg/dL (8-21)
[2019-03-01 06:41] LABS: ANION GAP < 3 (5-15); GFR AFRICAN AMERICAN 105 mL/min (>90)
[2019-03-01] MEDS: ALBUTEROL SULFATE 0.083% 2.5 MG/3 ML VIAL.NEB INH SCH ×5 (07:45→23:26)
[2019-03-01] MEDS: IPRATROPIUM BROM 0.5 MG/2.5 ML VIAL.NEB (ATROVENT) INH SCH ×5 (07:45→23:26)
[2019-03-01 07:58] LABS: HEMATOCRIT 20.4 % (36-54)
[2019-03-01] MEDS: TAMSULOSIN HCL 0.4 MG CAP PO SCH (08:43)
[2019-03-01] MEDS: VANCOMYCIN HCL ORAL SOLUTION 250 MG/5 ML, 80 ML PO SCH ×3 (08:43→16:08)
[2019-03-01] MEDS: FERROUS SULFATE 300 MG/5 ML UDC GT SCH ×2 (08:43→21:20)
[2019-03-01] MEDS: PANTOPRAZOLE SODIUM 40 MG/VIAL (PROTONIX) IVP SCH ×2 (08:43→21:20)
[2019-03-01] MEDS: TACROLIMUS ANHYDROUS 1 MG CAPSULE (PROGRAF) PO SCH ×2 (08:44→21:20)
[2019-03-01] MEDS: CINACALCET HCL 30 MG TABLET PO SCH (08:44)
[2019-03-01] MEDS: ACETAMINOPHEN 325 MG TABLET PO PRN (08:44)
[2019-03-01] MEDS: MYCOPHENOLATE MOFETIL 250 MG CAPSULE PO SCH ×2 (08:45→18:02)
[2019-03-01] MEDS: FLECAINIDE ACETATE 50 MG TABLET (TAMBOCOR) PO SCH ×2 (08:46→21:21)
[2019-03-01] MEDS: METOPROLOL TARTRATE 25 MG TABLET PO SCH (08:46)
[2019-03-01] MEDS: FLUCONAZOLE 100 mg/ NS 50 ML IV SCH (09:01)
[2019-03-01] MEDS ORDERED: BUMEX 1 MG/4 ML VIAL IVP ONE (09:45)
[2019-03-01 09:56] LABS: PLATELET COUNT (AUTO) 35 K/uL (130-430)
[2019-03-01] MEDS: CEFEPIME 1 GM in D5W 50 ML IV SCH (11:08)
[2019-03-01 11:09] LABS: INR 1.4 (0.80-1.20)
[2019-03-01 11:13] LABS: TOTAL IRON BIND. CAPACITY 125 ug/dL (250-450)
[2019-03-01 11:24] LABS: THYROID STIMULATING HORMONE 2.84 uIu/mL (0.34-4.82)
[2019-03-01 11:40] LABS: FIBRINOGEN 312 mg/dL (200-400)
[2019-03-01] MEDS: 0.45% NACL 1,000 ML IV SCH (23:12)
[2019-03-02] VITALS (24 sets, daily range): BP systolic 99–145
[2019-03-02] MEDS: LORazepam 2 MG/ML VIAL IVP PRN ×4 (00:21→11:33)
[2019-03-02] MEDS: ALBUTEROL SULFATE 0.083% 2.5 MG/3 ML VIAL.NEB INH SCH ×6 (03:00→23:00)
[2019-03-02] MEDS: IPRATROPIUM BROM 0.5 MG/2.5 ML VIAL.NEB (ATROVENT) INH SCH ×6 (03:00→23:00)
[2019-03-02 05:54] LABS: BASOPHILS % (AUTO) 0.1 % (0.0-2.0); EOSINOPHILS % (AUTO) 0.1 % (0.0-4.0); HEMATOCRIT 23.2 % (36-54); LYMPHOCYTES # (AUTO) 0.4 K/uL (1.0-5.5); LYMPHOCYTES % (AUTO) 5.3 % (20.5-51.5); MEAN CORPUSCULAR HEMOGLOBIN 31 pg (27-31); MEAN CORPUSCULAR HGB CONC 35 % (32-36); MEAN CORPUSCULAR VOLUME 89 fL (79.0-98.0); MONOCYTES # (AUTO) 1.6 K/uL (0.0-1.0); MONOCYTES % (AUTO) 23.8 % (1.7-9.3); NEUTROPHILS # (AUTO) 4.9 K/uL (1.8-7.7); NEUTROPHILS % (AUTO) 70.7 % (40.0-70.0); RED BLOOD CELL COUNT(AUTO) 2.62 MIL/uL (4.2-6.2); RED CELL DISTRIBUTION WIDTH 16.8 % (9.0-15.0); WHITE BLOOD COUNT (AUTO) 6.9 K/uL (4.8-10.8)
[2019-03-02 06:10] LABS: ALBUMIN 2.3 g/dL (3.4-4.8); CALCIUM 7.5 mg/dL (8.4-11.0); CREATININE 0.85 mg/dL (0.55-1.30); PHOSPHORUS 2.4 mg/dL (2.7-4.5); TOTAL BILIRUBIN 1.1 mg/dL (0.0-1.0)
[2019-03-02] MEDS: HYDROCORTISONE SOD SUCC 100 MG/2 ML VIAL IVP SCH ×2 (06:17→18:27)
[2019-03-02 06:18] LABS: PLATELET COUNT (AUTO) 40 K/uL (130-430)
[2019-03-02] MEDS: PANTOPRAZOLE SODIUM 40 MG/VIAL (PROTONIX) IVP SCH ×2 (08:37→21:25)
[2019-03-02] MEDS ORDERED: BUMEX 1 MG/4 ML VIAL IVP ONE (10:00)
[2019-03-02] MEDS ORDERED: NA PHOS 15 MM in NS 250 ML IV ONE (10:00)
[2019-03-02] MEDS ORDERED: POTASSIUM CHLORIDE 40 MEQ in NS 250 ML IV ONE (10:00)
[2019-03-02] MEDS: FLUCONAZOLE 100 mg/ NS 50 ML IV SCH (11:12)
[2019-03-02] MEDS: TAMSULOSIN HCL 0.4 MG CAP PO SCH (11:14)
[2019-03-02] MEDS: TACROLIMUS ANHYDROUS 1 MG CAPSULE (PROGRAF) PO SCH ×2 (11:14→21:25)
[2019-03-02] MEDS: MYCOPHENOLATE MOFETIL 250 MG CAPSULE PO SCH ×2 (11:14→17:47)
[2019-03-02] MEDS: CINACALCET HCL 30 MG TABLET PO SCH (11:14)
[2019-03-02] MEDS: FLECAINIDE ACETATE 50 MG TABLET (TAMBOCOR) PO SCH ×2 (11:15→21:26)
[2019-03-02] MEDS: FERROUS SULFATE 300 MG/5 ML UDC GT SCH ×2 (11:16→21:25)
[2019-03-02] MEDS: METOPROLOL TARTRATE 25 MG TABLET PO SCH (11:16)
[2019-03-02 12:08] LABS: HEPATITIS A AB, IgM Negative (Negative); HEPATITIS B CORE AB, IgM Negative (Negative); HEPATITIS B SURFACE AG Negative (Negative)
[2019-03-02] MEDS: CEFEPIME 1 GM in D5W 50 ML IV SCH (12:30)
[2019-03-02] MEDS: metroNIDAZOLE 250 mg/NS 50 ML IV SCH ×2 (13:59→22:03)
[2019-03-02] MEDS: VANCOMYCIN HCL ORAL SOLUTION 250 MG/5 ML, 80 ML PO SCH (21:26)
[2019-03-02] MEDS: 0.45% NACL 1,000 ML IV SCH (22:53)
[2019-03-03] VITALS (25 sets, daily range): BP systolic 91–163
[2019-03-03] MEDS: ALBUTEROL SULFATE 0.083% 2.5 MG/3 ML VIAL.NEB INH SCH ×6 (03:00→23:00)
[2019-03-03] MEDS: IPRATROPIUM BROM 0.5 MG/2.5 ML VIAL.NEB (ATROVENT) INH SCH ×6 (03:00→23:00)
[2019-03-03] MEDS: HYDROCORTISONE SOD SUCC 100 MG/2 ML VIAL IVP SCH ×2 (06:27→18:11)
[2019-03-03] MEDS: metroNIDAZOLE 250 mg/NS 50 ML IV SCH ×3 (06:28→21:45)
[2019-03-03 07:42] LABS: FOLATE (FOLIC ACID) 15.3 ng/mL (>3.0)
[2019-03-03] MEDS: VANCOMYCIN HCL ORAL SOLUTION 250 MG/5 ML, 80 ML PO SCH ×4 (08:46→21:40)
[2019-03-03] MEDS: MYCOPHENOLATE MOFETIL 250 MG CAPSULE PO SCH ×2 (08:47→18:11)
[2019-03-03] MEDS: PANTOPRAZOLE SODIUM 40 MG/VIAL (PROTONIX) IVP SCH ×2 (08:47→21:40)
[2019-03-03] MEDS: FERROUS SULFATE 300 MG/5 ML UDC GT SCH ×2 (08:47→21:42)
[2019-03-03] MEDS: TAMSULOSIN HCL 0.4 MG CAP PO SCH (08:48)
[2019-03-03] MEDS: TACROLIMUS ANHYDROUS 1 MG CAPSULE (PROGRAF) PO SCH ×2 (08:48→21:40)
[2019-03-03] MEDS: CINACALCET HCL 30 MG TABLET PO SCH (08:48)
[2019-03-03] MEDS: METOPROLOL TARTRATE 25 MG TABLET PO SCH (08:49)
[2019-03-03] MEDS: FLECAINIDE ACETATE 50 MG TABLET (TAMBOCOR) PO SCH ×2 (08:50→21:42)
[2019-03-03 10:04] LABS: BASOPHILS % (AUTO) 0.1 % (0.0-2.0); EOSINOPHILS % (AUTO) 0.1 % (0.0-4.0); HEMATOCRIT 25.3 % (36-54); HEMOGLOBIN 8.6 g/dL (14.0-18.0); LYMPHOCYTES # (AUTO) 0.2 K/uL (1.0-5.5); MEAN CORPUSCULAR HEMOGLOBIN 31 pg (27-31); MEAN CORPUSCULAR HGB CONC 34 % (32-36); MEAN CORPUSCULAR VOLUME 90 fL (79.0-98.0); MONOCYTES # (AUTO) 1.6 K/uL (0.0-1.0); MONOCYTES % (AUTO) 25.2 % (1.7-9.3); NEUTROPHILS # (AUTO) 4.5 K/uL (1.8-7.7); NEUTROPHILS % (AUTO) 71.6 % (40.0-70.0); PLATELET COUNT (AUTO) 53 K/uL (130-430); RED BLOOD CELL COUNT(AUTO) 2.81 MIL/uL (4.2-6.2); RED CELL DISTRIBUTION WIDTH 16.9 % (9.0-15.0); WHITE BLOOD COUNT (AUTO) 6.3 K/uL (4.8-10.8)
[2019-03-03 10:18] LABS: CALCIUM 8.2 mg/dL (8.4-11.0); CREATININE 0.86 mg/dL (0.55-1.30)
[2019-03-03 10:23] LABS: ALBUMIN 2.6 g/dL (3.4-4.8); TOTAL BILIRUBIN 1.7 mg/dL (0.0-1.0)
[2019-03-03 10:32] LABS: POTASSIUM 2.6 mmol/L (3.5-5.1)
[2019-03-03] MEDS ORDERED: POTASSIUM CHLORIDE 20 MEQ TAB.PRT.SR PO ONE ×2 (10:45→16:00)
[2019-03-03] MEDS: FLUCONAZOLE 100 mg/ NS 50 ML IV SCH (10:51)
[2019-03-03] MEDS: CEFEPIME 1 GM in D5W 50 ML IV SCH (12:45)
[2019-03-03] MEDS: LORazepam 2 MG/ML VIAL IVP PRN (14:47)
[2019-03-03 20:06] LABS: TACROLIMUS (FK506) 2.5 ng/mL (2.0-20.0)
[2019-03-04] VITALS (21 sets, daily range): BP systolic 103–144
[2019-03-04] MEDS: ALBUTEROL SULFATE 0.083% 2.5 MG/3 ML VIAL.NEB INH PRN (02:06)
[2019-03-04] MEDS: IPRATROPIUM BROM 0.5 MG/2.5 ML VIAL.NEB (ATROVENT) INH PRN (02:06)
[2019-03-04] MEDS: 0.45% NACL 1,000 ML IV SCH ×2 (03:34→17:16)
[2019-03-04 05:32] LABS: BASOPHILS # (AUTO) 0.1 K/uL (0.0-0.2); BASOPHILS % (AUTO) 0.9 % (0.0-2.0); EOSINOPHILS % (AUTO) 0.2 % (0.0-4.0); HEMATOCRIT 24.5 % (36-54); HEMOGLOBIN 8.3 g/dL (14.0-18.0); LYMPHOCYTES # (AUTO) 0.3 K/uL (1.0-5.5); LYMPHOCYTES % (AUTO) 5.4 % (20.5-51.5); MEAN CORPUSCULAR HEMOGLOBIN 31 pg (27-31); MEAN CORPUSCULAR HGB CONC 34 % (32-36); MEAN CORPUSCULAR VOLUME 90 fL (79.0-98.0); MONOCYTES # (AUTO) 1.6 K/uL (0.0-1.0); MONOCYTES % (AUTO) 29.8 % (1.7-9.3); NEUTROPHILS # (AUTO) 3.5 K/uL (1.8-7.7); NEUTROPHILS % (AUTO) 63.7 % (40.0-70.0); PLATELET COUNT (AUTO) 51 K/uL (130-430); RED BLOOD CELL COUNT(AUTO) 2.73 MIL/uL (4.2-6.2); RED CELL DISTRIBUTION WIDTH 17.5 % (9.0-15.0); WHITE BLOOD COUNT (AUTO) 5.5 K/uL (4.8-10.8)
[2019-03-04 05:55] LABS: ALBUMIN 2.5 g/dL (3.4-4.8); CALCIUM 7.4 mg/dL (8.4-11.0); CREATININE 0.81 mg/dL (0.55-1.30); PHOSPHORUS 2.2 mg/dL (2.7-4.5); TOTAL BILIRUBIN 1.6 mg/dL (0.0-1.0)
[2019-03-04] MEDS: HYDROCORTISONE SOD SUCC 100 MG/2 ML VIAL IVP SCH (06:21)
[2019-03-04] MEDS: metroNIDAZOLE 250 mg/NS 50 ML IV SCH ×3 (06:22→21:31)
[2019-03-04] MEDS: ACETAMINOPHEN 325 MG TABLET PO PRN (06:28)
[2019-03-04] MEDS: IPRATROPIUM BROM 0.5 MG/2.5 ML VIAL.NEB (ATROVENT) INH SCH ×5 (07:19→23:00)
[2019-03-04] MEDS: ALBUTEROL SULFATE 0.083% 2.5 MG/3 ML VIAL.NEB INH SCH ×5 (07:19→23:00)
[2019-03-04] MEDS: PANTOPRAZOLE SODIUM 40 MG/VIAL (PROTONIX) IVP SCH ×2 (08:28→20:56)
[2019-03-04] MEDS: FERROUS SULFATE 300 MG/5 ML UDC GT SCH ×2 (08:28→20:55)
[2019-03-04] MEDS: TACROLIMUS ANHYDROUS 1 MG CAPSULE (PROGRAF) PO SCH ×2 (08:29→20:58)
[2019-03-04] MEDS: MYCOPHENOLATE MOFETIL 250 MG CAPSULE PO SCH ×2 (08:29→17:17)
[2019-03-04] MEDS: CINACALCET HCL 30 MG TABLET PO SCH (08:29)
[2019-03-04] MEDS: METOPROLOL TARTRATE 25 MG TABLET PO SCH (08:30)
[2019-03-04] MEDS: TAMSULOSIN HCL 0.4 MG CAP PO SCH (08:30)
[2019-03-04] MEDS: FLECAINIDE ACETATE 50 MG TABLET (TAMBOCOR) PO SCH ×2 (08:30→21:00)
[2019-03-04] MEDS: VANCOMYCIN HCL ORAL SOLUTION 250 MG/5 ML, 80 ML PO SCH ×4 (08:31→20:57)
[2019-03-04] MEDS ORDERED: MAGNESIUM SULFATE 50 ML IV ONE (08:45)
[2019-03-04] MEDS ORDERED: POTASSIUM CHLORIDE 40 MEQ in NS 250 ML IV ONE (08:45)
[2019-03-04] MEDS ORDERED: POTASSIUM CHLORIDE 20 MEQ TAB.PRT.SR PO ONE (08:45)
[2019-03-04] MEDS ORDERED: BUMEX 1 MG/4 ML VIAL IVP ONE (09:30)
[2019-03-04] MEDS: FLUCONAZOLE 100 mg/ NS 50 ML IV SCH (10:41)
[2019-03-04] MEDS: TEMAZEPAM 15 MG CAPSULE PO PRN (11:23)
[2019-03-04] MEDS: LORazepam 2 MG/ML VIAL IVP PRN (13:36)
[2019-03-04] MEDS: POTASSIUM CHLORIDE 20 MEQ TAB.PRT.SR PO SCH (20:56)
[2019-03-04] MEDS: APIXABAN 2.5 MG TABLET PO SCH (21:03)
[2019-03-05] MEDS: ALBUTEROL SULFATE 0.083% 2.5 MG/3 ML VIAL.NEB INH SCH ×5 (03:00→19:38)
[2019-03-05] MEDS: IPRATROPIUM BROM 0.5 MG/2.5 ML VIAL.NEB (ATROVENT) INH SCH ×5 (03:00→19:39)
[2019-03-05 03:11] VITALS: BP_SYST 107
[2019-03-05] MEDS: metroNIDAZOLE 250 mg/NS 50 ML IV SCH (05:32)
[2019-03-05 06:11] LABS: BASOPHILS % (AUTO) 0.4 % (0.0-2.0); EOSINOPHILS % (AUTO) 0.4 % (0.0-4.0); HEMATOCRIT 25.2 % (36-54); HEMOGLOBIN 8.9 g/dL (14.0-18.0); LYMPHOCYTES # (AUTO) 0.5 K/uL (1.0-5.5); LYMPHOCYTES % (AUTO) 10.1 % (20.5-51.5); MEAN CORPUSCULAR HEMOGLOBIN 32 pg (27-31); MEAN CORPUSCULAR HGB CONC 35 % (32-36); MEAN CORPUSCULAR VOLUME 91 fL (79.0-98.0); MONOCYTES # (AUTO) 1.3 K/uL (0.0-1.0); MONOCYTES % (AUTO) 28.4 % (1.7-9.3); NEUTROPHILS # (AUTO) 2.9 K/uL (1.8-7.7); NEUTROPHILS % (AUTO) 60.7 % (40.0-70.0); PLATELET COUNT (AUTO) 53 K/uL (130-430); RED BLOOD CELL COUNT(AUTO) 2.78 MIL/uL (4.2-6.2); RED CELL DISTRIBUTION WIDTH 17.7 % (9.0-15.0); WHITE BLOOD COUNT (AUTO) 4.7 K/uL (4.8-10.8)
[2019-03-05 06:53] LABS: ALBUMIN 2.5 g/dL (3.4-4.8); CALCIUM 7.6 mg/dL (8.4-11.0); CREATININE 0.76 mg/dL (0.55-1.30); POTASSIUM 3.9 mmol/L (3.5-5.1); TOTAL BILIRUBIN 1.6 mg/dL (0.0-1.0)
[2019-03-05 08:30] VITALS: BP_SYST 154
[2019-03-05] MEDS ORDERED: HYDROCORTISONE SOD SUCC 100 MG/2 ML VIAL IVP SCH (09:00)
[2019-03-05] MEDS: CINACALCET HCL 30 MG TABLET PO SCH (09:13)
[2019-03-05] MEDS: POTASSIUM CHLORIDE 20 MEQ TAB.PRT.SR PO SCH ×2 (09:13→21:14)
[2019-03-05] MEDS: TAMSULOSIN HCL 0.4 MG CAP PO SCH (09:14)
[2019-03-05] MEDS: METOPROLOL TARTRATE 25 MG TABLET PO SCH (09:15)
[2019-03-05] MEDS: APIXABAN 2.5 MG TABLET PO SCH ×2 (09:16→21:16)
[2019-03-05] MEDS: VANCOMYCIN HCL ORAL SOLUTION 250 MG/5 ML, 80 ML PO SCH ×4 (09:17→21:17)
[2019-03-05] MEDS: FERROUS SULFATE 300 MG/5 ML UDC GT SCH ×2 (09:17→21:12)
[2019-03-05] MEDS: TACROLIMUS ANHYDROUS 1 MG CAPSULE (PROGRAF) PO SCH ×2 (09:18→21:00)
[2019-03-05] MEDS: PANTOPRAZOLE SODIUM 40 MG/VIAL (PROTONIX) IVP SCH ×2 (09:21→21:13)
[2019-03-05] MEDS: MYCOPHENOLATE MOFETIL 250 MG CAPSULE PO SCH ×2 (09:21→17:46)
[2019-03-05] MEDS: LORazepam 2 MG/ML VIAL IVP PRN ×2 (09:22→21:05)
[2019-03-05] MEDS: FLECAINIDE ACETATE 50 MG TABLET (TAMBOCOR) PO SCH ×2 (09:35→21:18)
[2019-03-05] MEDS: FLUCONAZOLE 100 mg/ NS 50 ML IV SCH (10:31)
[2019-03-05 14:03] VITALS: BP_SYST 138
[2019-03-05 16:06] VITALS: BP_SYST 126
[2019-03-05] MEDS: 0.45% NACL 1,000 ML IV SCH (17:42)
[2019-03-05 20:00] VITALS: BP_SYST 125
[2019-03-05 23:49] VITALS: BP_SYST 145
[2019-03-06] MEDS: LORazepam 2 MG/ML VIAL IVP PRN ×3 (01:31→20:34)
[2019-03-06 04:00] VITALS: BP_SYST 162
[2019-03-06] MEDS: ALBUTEROL SULFATE 0.083% 2.5 MG/3 ML VIAL.NEB INH SCH ×4 (07:01→18:45)
[2019-03-06] MEDS: IPRATROPIUM BROM 0.5 MG/2.5 ML VIAL.NEB (ATROVENT) INH SCH ×4 (07:01→18:44)
[2019-03-06 08:00] VITALS: BP_SYST 139
[2019-03-06] MEDS: FERROUS SULFATE 300 MG/5 ML UDC GT SCH ×2 (09:28→20:00)
[2019-03-06] MEDS: FLECAINIDE ACETATE 50 MG TABLET (TAMBOCOR) PO SCH ×2 (09:30→20:01)
[2019-03-06] MEDS: PANTOPRAZOLE SODIUM 40 MG/VIAL (PROTONIX) IVP SCH ×2 (09:31→20:00)
[2019-03-06] MEDS: VANCOMYCIN HCL ORAL SOLUTION 250 MG/5 ML, 80 ML PO SCH ×4 (09:31→20:28)
[2019-03-06] MEDS: CINACALCET HCL 30 MG TABLET PO SCH (09:32)
[2019-03-06] MEDS: POTASSIUM CHLORIDE 20 MEQ TAB.PRT.SR PO SCH ×2 (09:32→20:00)
[2019-03-06] MEDS: METOPROLOL TARTRATE 25 MG TABLET PO SCH (09:32)
[2019-03-06] MEDS: TAMSULOSIN HCL 0.4 MG CAP PO SCH (09:32)
[2019-03-06] MEDS: APIXABAN 2.5 MG TABLET PO SCH ×2 (09:34→20:02)
[2019-03-06] MEDS: MYCOPHENOLATE MOFETIL 250 MG CAPSULE PO SCH ×2 (09:35→17:40)
[2019-03-06] MEDS: FLUCONAZOLE 100 mg/ NS 50 ML IV SCH (09:39)
[2019-03-06] MEDS: ACETAMINOPHEN 325 MG TABLET PO PRN ×2 (11:13→19:47)
[2019-03-06] MEDS: TACROLIMUS ANHYDROUS 1 MG CAPSULE (PROGRAF) PO SCH ×2 (11:14→20:01)
[2019-03-06 12:30] VITALS: BP_SYST 141
[2019-03-06 16:20] VITALS: BP_SYST 138
[2019-03-06] MEDS: 0.45% NACL 1,000 ML IV SCH ×2 (16:58→22:52)
[2019-03-06 20:00] VITALS: BP_SYST 117
[2019-03-06 23:35] VITALS: BP_SYST 116
[2019-03-07] MEDS: ALBUTEROL SULFATE 0.083% 2.5 MG/3 ML VIAL.NEB INH SCH ×5 (07:05→23:19)
[2019-03-07] MEDS: IPRATROPIUM BROM 0.5 MG/2.5 ML VIAL.NEB (ATROVENT) INH SCH ×5 (07:05→23:19)
[2019-03-07] MEDS: MYCOPHENOLATE MOFETIL 250 MG CAPSULE PO SCH ×2 (08:15→17:05)
[2019-03-07] MEDS: FAMOTIDINE 20 MG TABLET PO SCH ×2 (08:16→20:41)
[2019-03-07] MEDS: FERROUS SULFATE 300 MG/5 ML UDC GT SCH ×2 (08:16→20:45)
[2019-03-07] MEDS: FLECAINIDE ACETATE 50 MG TABLET (TAMBOCOR) PO SCH ×2 (08:16→20:43)
[2019-03-07] MEDS: TACROLIMUS ANHYDROUS 1 MG CAPSULE (PROGRAF) PO SCH ×2 (08:16→20:46)
[2019-03-07] MEDS: POTASSIUM CHLORIDE 20 MEQ TAB.PRT.SR PO SCH ×2 (08:17→20:40)
[2019-03-07] MEDS: APIXABAN 2.5 MG TABLET PO SCH ×2 (08:17→20:41)
[2019-03-07] MEDS: TAMSULOSIN HCL 0.4 MG CAP PO SCH (08:17)
[2019-03-07] MEDS: METOPROLOL TARTRATE 25 MG TABLET PO SCH (08:18)
[2019-03-07] MEDS: CINACALCET HCL 30 MG TABLET PO SCH (08:19)
[2019-03-07 08:31] VITALS: BP_SYST 147
[2019-03-07] MEDS ORDERED: FUROSEMIDE 40 MG/4 ML VIAL IVP ONE (08:45)
[2019-03-07] MEDS: FLUCONAZOLE 100 mg/ NS 50 ML IV SCH (09:14)
[2019-03-07] MEDS: BENZONATATE 100 MG CAPSULE (TESSALON) PO PRN ×3 (09:14→22:56)
[2019-03-07] MEDS: VANCOMYCIN HCL ORAL SOLUTION 250 MG/5 ML, 80 ML PO SCH ×4 (09:21→20:47)
[2019-03-07 11:01] VITALS: BP_SYST 137
[2019-03-07] MEDS: NORMAL SALINE 5 ML DISP.SYRIN IVF SCH ×2 (12:59→20:47)
[2019-03-07 14:40] LABS: ALBUMIN 2.5 g/dL (3.4-4.8); CALCIUM 7.1 mg/dL (8.4-11.0); CREATININE 0.85 mg/dL (0.55-1.30); POTASSIUM 4.4 mmol/L (3.5-5.1); TOTAL BILIRUBIN 1.5 mg/dL (0.0-1.0)
[2019-03-07 15:05] VITALS: BP_SYST 119
[2019-03-07 20:30] VITALS: BP_SYST 127
[2019-03-07] MEDS: LORazepam 2 MG/ML VIAL IVP PRN (23:08)
[2019-03-08 02:20] VITALS: BP_SYST 130
[2019-03-08] MEDS: NORMAL SALINE 5 ML DISP.SYRIN IVF SCH ×3 (05:30→21:04)
[2019-03-08] MEDS: ALBUTEROL SULFATE 0.083% 2.5 MG/3 ML VIAL.NEB INH PRN (05:43)
[2019-03-08] MEDS: IPRATROPIUM BROM 0.5 MG/2.5 ML VIAL.NEB (ATROVENT) INH PRN (05:44)
[2019-03-08 06:16] LABS: BASOPHILS % (AUTO) 0.2 % (0.0-2.0); EOSINOPHILS % (AUTO) 0.4 % (0.0-4.0); HEMATOCRIT 25.2 % (36-54); HEMOGLOBIN 8.7 g/dL (14.0-18.0); LYMPHOCYTES # (AUTO) 0.7 K/uL (1.0-5.5); LYMPHOCYTES % (AUTO) 11.6 % (20.5-51.5); MEAN CORPUSCULAR HEMOGLOBIN 31 pg (27-31); MEAN CORPUSCULAR HGB CONC 34 % (32-36); MEAN CORPUSCULAR VOLUME 89 fL (79.0-98.0); MONOCYTES # (AUTO) 2.1 K/uL (0.0-1.0); MONOCYTES % (AUTO) 36.2 % (1.7-9.3); NEUTROPHILS % (AUTO) 51.6 % (40.0-70.0); PLATELET COUNT (AUTO) 58 K/uL (130-430); RED BLOOD CELL COUNT(AUTO) 2.82 MIL/uL (4.2-6.2); RED CELL DISTRIBUTION WIDTH 19.4 % (9.0-15.0); WHITE BLOOD COUNT (AUTO) 5.7 K/uL (4.8-10.8)
[2019-03-08] MEDS: IPRATROPIUM BROM 0.5 MG/2.5 ML VIAL.NEB (ATROVENT) INH SCH ×5 (07:43→22:00)
[2019-03-08] MEDS: ALBUTEROL SULFATE 0.083% 2.5 MG/3 ML VIAL.NEB INH SCH ×5 (07:43→22:00)
[2019-03-08] MEDS: POTASSIUM CHLORIDE 20 MEQ TAB.PRT.SR PO SCH (08:59)
[2019-03-08] MEDS: FERROUS SULFATE 300 MG/5 ML UDC GT SCH ×2 (09:05→20:48)
[2019-03-08] MEDS: TAMSULOSIN HCL 0.4 MG CAP PO SCH (09:05)
[2019-03-08] MEDS: MYCOPHENOLATE MOFETIL 250 MG CAPSULE PO SCH ×2 (09:05→17:04)
[2019-03-08] MEDS: METOPROLOL TARTRATE 25 MG TABLET PO SCH (09:06)
[2019-03-08] MEDS: TACROLIMUS ANHYDROUS 1 MG CAPSULE (PROGRAF) PO SCH ×2 (09:06→20:48)
[2019-03-08] MEDS: FLUCONAZOLE 100 mg/ NS 50 ML IV SCH (09:07)
[2019-03-08] MEDS: FLECAINIDE ACETATE 50 MG TABLET (TAMBOCOR) PO SCH ×2 (09:07→20:49)
[2019-03-08] MEDS: VANCOMYCIN HCL ORAL SOLUTION 250 MG/5 ML, 80 ML PO SCH ×3 (09:07→17:04)
[2019-03-08] MEDS: CINACALCET HCL 30 MG TABLET PO SCH (09:10)
[2019-03-08] MEDS: APIXABAN 2.5 MG TABLET PO SCH ×2 (09:17→20:51)
[2019-03-08] MEDS: FAMOTIDINE 20 MG TABLET PO SCH (09:18)
[2019-03-08 09:30] VITALS: BP_SYST 121
[2019-03-08] MEDS: BENZONATATE 100 MG CAPSULE (TESSALON) PO PRN ×2 (09:55→20:52)
[2019-03-08] MEDS: LORazepam 2 MG/ML VIAL IVP PRN (11:55)
[2019-03-08 12:35] VITALS: BP_SYST 113
[2019-03-08 16:44] VITALS: BP_SYST 122
[2019-03-08 20:41] VITALS: BP_SYST 112
[2019-03-08] MEDS: HYDROcodone/ACETAMIN 5-325 MG TAB (NORCO/ VICODIN) PO PRN (21:42)
[2019-03-08 23:47] VITALS: BP_SYST 129
[2019-03-09] MEDS: IPRATROPIUM BROM 0.5 MG/2.5 ML VIAL.NEB (ATROVENT) INH SCH ×6 (02:05→23:00)
[2019-03-09] MEDS: ALBUTEROL SULFATE 0.083% 2.5 MG/3 ML VIAL.NEB INH SCH ×6 (02:05→23:00)
[2019-03-09] MEDS: NORMAL SALINE 5 ML DISP.SYRIN IVF SCH ×3 (05:04→21:37)
[2019-03-09] MEDS: HYDROcodone/ACETAMIN 5-325 MG TAB (NORCO/ VICODIN) PO PRN ×3 (06:23→18:27)
[2019-03-09 06:52] LABS: BASOPHILS % (AUTO) 0.1 % (0.0-2.0); EOSINOPHILS % (AUTO) 0.5 % (0.0-4.0); HEMATOCRIT 28.3 % (36-54); HEMOGLOBIN 9.9 g/dL (14.0-18.0); LYMPHOCYTES # (AUTO) 0.7 K/uL (1.0-5.5); LYMPHOCYTES % (AUTO) 11.4 % (20.5-51.5); MEAN CORPUSCULAR HEMOGLOBIN 31 pg (27-31); MEAN CORPUSCULAR HGB CONC 35 % (32-36); MEAN CORPUSCULAR VOLUME 90 fL (79.0-98.0); MONOCYTES # (AUTO) 2.2 K/uL (0.0-1.0); MONOCYTES % (AUTO) 36.9 % (1.7-9.3); NEUTROPHILS # (AUTO) 3.1 K/uL (1.8-7.7); NEUTROPHILS % (AUTO) 51.1 % (40.0-70.0); PLATELET COUNT (AUTO) 53 K/uL (130-430); RED BLOOD CELL COUNT(AUTO) 3.16 MIL/uL (4.2-6.2); RED CELL DISTRIBUTION WIDTH 19.4 % (9.0-15.0); WHITE BLOOD COUNT (AUTO) 6.1 K/uL (4.8-10.8)
[2019-03-09 07:05] LABS: ALBUMIN 2.9 g/dL (3.4-4.8); CALCIUM 7.9 mg/dL (8.4-11.0); CREATININE 1.06 mg/dL (0.55-1.30); POTASSIUM 4.5 mmol/L (3.5-5.1); TOTAL BILIRUBIN 1.8 mg/dL (0.0-1.0)
[2019-03-09 08:00] VITALS: BP_SYST 99
[2019-03-09] MEDS: METOPROLOL TARTRATE 25 MG TABLET PO SCH (08:59)
[2019-03-09] MEDS: TAMSULOSIN HCL 0.4 MG CAP PO SCH (08:59)
[2019-03-09] MEDS: TACROLIMUS ANHYDROUS 1 MG CAPSULE (PROGRAF) PO SCH ×2 (08:59→21:29)
[2019-03-09] MEDS: FAMOTIDINE 20 MG TABLET PO SCH (08:59)
[2019-03-09] MEDS: FERROUS SULFATE 300 MG/5 ML UDC GT SCH ×2 (09:00→21:21)
[2019-03-09] MEDS: CINACALCET HCL 30 MG TABLET PO SCH (09:00)
[2019-03-09] MEDS: BENZONATATE 100 MG CAPSULE (TESSALON) PO PRN (09:00)
[2019-03-09] MEDS: MYCOPHENOLATE MOFETIL 250 MG CAPSULE PO SCH ×2 (09:01→18:27)
[2019-03-09] MEDS: POTASSIUM CHLORIDE 20 MEQ TAB.PRT.SR PO SCH (09:01)
[2019-03-09] MEDS: APIXABAN 2.5 MG TABLET PO SCH ×2 (09:02→21:42)
[2019-03-09] MEDS: FLECAINIDE ACETATE 50 MG TABLET (TAMBOCOR) PO SCH ×2 (10:17→21:30)
[2019-03-09 11:23] VITALS: BP_SYST 151
[2019-03-09 15:22] VITALS: BP_SYST 97
[2019-03-09 20:43] VITALS: BP_SYST 97
[2019-03-09] MEDS ORDERED: MORPHINE 2 MG/ML INJ. SYRINGE IVP SCH (20:50)
[2019-03-09] MEDS: ALPRAZolam 0.25 MG TABLET PO PRN (21:23)
[2019-03-09 21:54] VITALS: BP_SYST 104
[2019-03-10] MEDS: TEMAZEPAM 15 MG CAPSULE PO PRN (00:17)
[2019-03-10 00:24] VITALS: BP_SYST 104
[2019-03-10] MEDS: ALBUTEROL SULFATE 0.083% 2.5 MG/3 ML VIAL.NEB INH SCH ×6 (03:00→23:38)
[2019-03-10] MEDS: IPRATROPIUM BROM 0.5 MG/2.5 ML VIAL.NEB (ATROVENT) INH SCH ×6 (03:00→23:38)
[2019-03-10] MEDS: NORMAL SALINE 5 ML DISP.SYRIN IVF SCH ×3 (05:06→21:57)
[2019-03-10] MEDS: ACETAMINOPHEN 325 MG TABLET PO PRN (05:08)
[2019-03-10 07:30] VITALS: BP_SYST 111
[2019-03-10] MEDS: FAMOTIDINE 20 MG TABLET PO SCH (09:21)
[2019-03-10] MEDS: FERROUS SULFATE 300 MG/5 ML UDC GT SCH ×2 (09:21→21:50)
[2019-03-10] MEDS: APIXABAN 2.5 MG TABLET PO SCH ×2 (09:22→21:54)
[2019-03-10] MEDS: POTASSIUM CHLORIDE 20 MEQ TAB.PRT.SR PO SCH (09:22)
[2019-03-10] MEDS: CINACALCET HCL 30 MG TABLET PO SCH (09:22)
[2019-03-10] MEDS: FLECAINIDE ACETATE 50 MG TABLET (TAMBOCOR) PO SCH ×2 (09:23→21:57)
[2019-03-10] MEDS: MYCOPHENOLATE MOFETIL 250 MG CAPSULE PO SCH ×2 (09:24→17:58)
[2019-03-10] MEDS: METOPROLOL TARTRATE 25 MG TABLET PO SCH (09:24)
[2019-03-10] MEDS: TACROLIMUS ANHYDROUS 1 MG CAPSULE (PROGRAF) PO SCH ×2 (09:25→21:49)
[2019-03-10] MEDS: TAMSULOSIN HCL 0.4 MG CAP PO SCH (09:28)
[2019-03-10] MEDS: HYDROcodone/ACETAMIN 5-325 MG TAB (NORCO/ VICODIN) PO PRN ×2 (09:38→15:26)
[2019-03-10 12:00] VITALS: BP_SYST 123
[2019-03-10 15:22] VITALS: BP_SYST 99
[2019-03-10 20:00] VITALS: BP_SYST 122
[2019-03-10] MEDS: ALPRAZolam 0.25 MG TABLET PO PRN (21:49)
[2019-03-11] MEDS: TEMAZEPAM 15 MG CAPSULE PO PRN (00:08)
[2019-03-11 01:13] VITALS: BP_SYST 132
[2019-03-11] MEDS: HYDROcodone/ACETAMIN 5-325 MG TAB (NORCO/ VICODIN) PO PRN (02:37)
[2019-03-11] MEDS: ALBUTEROL SULFATE 0.083% 2.5 MG/3 ML VIAL.NEB INH SCH ×4 (03:00→18:54)
[2019-03-11] MEDS: IPRATROPIUM BROM 0.5 MG/2.5 ML VIAL.NEB (ATROVENT) INH SCH ×4 (03:00→18:55)
[2019-03-11] MEDS: NORMAL SALINE 5 ML DISP.SYRIN IVF SCH ×2 (06:21→15:05)
[2019-03-11 07:45] VITALS: BP_SYST 121
[2019-03-11] MEDS: ALPRAZolam 0.25 MG TABLET PO PRN (08:17)
[2019-03-11] MEDS: TACROLIMUS ANHYDROUS 1 MG CAPSULE (PROGRAF) PO SCH (09:28)
[2019-03-11] MEDS: CINACALCET HCL 30 MG TABLET PO SCH (09:28)
[2019-03-11] MEDS: FAMOTIDINE 20 MG TABLET PO SCH (09:29)
[2019-03-11] MEDS: MYCOPHENOLATE MOFETIL 250 MG CAPSULE PO SCH ×2 (09:29→17:16)
[2019-03-11] MEDS: TAMSULOSIN HCL 0.4 MG CAP PO SCH (09:29)
[2019-03-11] MEDS: POTASSIUM CHLORIDE 20 MEQ TAB.PRT.SR PO SCH (09:29)
[2019-03-11] MEDS: METOPROLOL TARTRATE 25 MG TABLET PO SCH (09:30)
[2019-03-11] MEDS: FERROUS SULFATE 300 MG/5 ML UDC GT SCH (09:30)
[2019-03-11] MEDS: APIXABAN 2.5 MG TABLET PO SCH (09:31)
[2019-03-11] MEDS: FLECAINIDE ACETATE 50 MG TABLET (TAMBOCOR) PO SCH (09:32)
[2019-03-11 12:17] VITALS: BP_SYST 118
[2019-03-11] MEDS: ALBUTEROL SULFATE 0.083% 2.5 MG/3 ML VIAL.NEB INH PRN (13:37)
[2019-03-11] MEDS: IPRATROPIUM BROM 0.5 MG/2.5 ML VIAL.NEB (ATROVENT) INH PRN (13:37)
[2019-03-11] MEDS ORDERED: ALPRAZolam 0.25 MG TABLET PO PRN (14:30)
[2019-03-11 16:13] VITALS: BP_SYST 126
[2019-03-11 17:54] VITALS: BP_SYST 126
[2019-03-11 20:00] VITALS: BP_SYST 127
== END 2019-03-11 20:09 | DRG 870 ==
LOC: SED 19:34 → STU 22:55 → SIC 02-16 21:42 → STU 03-04 19:34 → SMU 03-09 16:54
PROVIDERS: ADMIT Internal Medicine; ATTEND Internal Medicine
PROC: 5A09357 Assistance with Respiratory Ventilation, Less than 24 Consecutive Hours, Continuous Positive Airway Pressure (ICD-10-PCS; 2019-02-16)
PROC: 5A09357 Assistance with Respiratory Ventilation, Less than 24 Consecutive Hours, Continuous Positive Airway Pressure (ICD-10-PCS; 2019-02-17)
PROC: 5A09357 Assistance with Respiratory Ventilation, Less than 24 Consecutive Hours, Continuous Positive Airway Pressure (ICD-10-PCS; 2019-02-18)
PROC: 5A1955Z Respiratory Ventilation, Greater than 96 Consecutive Hours (ICD-10-PCS; principal; 2019-02-19)
PROC: 0BH17EZ Insertion of Endotracheal Airway into Trachea, Via Natural or Artificial Opening (ICD-10-PCS; 2019-02-19)
PROC: 30233K1 Transfusion of Nonautologous Frozen Plasma into Peripheral Vein, Percutaneous Approach (ICD-10-PCS; 2019-02-19)
PROC: 5A09357 Assistance with Respiratory Ventilation, Less than 24 Consecutive Hours, Continuous Positive Airway Pressure (ICD-10-PCS; 2019-02-19)
PROC: 30233N1 Transfusion of Nonautologous Red Blood Cells into Peripheral Vein, Percutaneous Approach (ICD-10-PCS; 2019-02-27)
DX: A41.9 Sepsis, unspecified organism (principal); R65.21 Severe sepsis with septic shock; N17.0 Acute kidney failure with tubular necrosis; J96.20 Acute and chronic respiratory failure, unspecified whether with hypoxia or hypercapnia; G93.41 Metabolic encephalopathy; J18.9 Pneumonia, unspecified organism; I13.0 Hypertensive heart and chronic kidney disease with heart failure and stage 1 through stage 4 chronic kidney disease, or unspecified chronic kidney disease; J44.0 Chronic obstructive pulmonary disease with (acute) lower respiratory infection; I42.9 Cardiomyopathy, unspecified; E87.3 Alkalosis; E87.2 Acidosis; A04.72 Enterocolitis due to Clostridium difficile, not specified as recurrent; Z94.0 Kidney transplant status; E87.1 Hypo-osmolality and hyponatremia; K21.9 Gastro-esophageal reflux disease without esophagitis; I48.0 Paroxysmal atrial fibrillation; Z96.653 Presence of artificial knee joint, bilateral; I34.0 Nonrheumatic mitral (valve) insufficiency; F41.9 Anxiety disorder, unspecified; E86.0 Dehydration; E83.42 Hypomagnesemia; E87.6 Hypokalemia; D69.6 Thrombocytopenia, unspecified; E11.22 Type 2 diabetes mellitus with diabetic chronic kidney disease; J44.9 Chronic obstructive pulmonary disease, unspecified; N40.0 Benign prostatic hyperplasia without lower urinary tract symptoms; I50.9 Heart failure, unspecified; N18.9 Chronic kidney disease, unspecified; D46.9 Myelodysplastic syndrome, unspecified; I99.8 Other disorder of circulatory system; B18.2 Chronic viral hepatitis C; T50.995A Adverse effect of other drugs, medicaments and biological substances, initial encounter; D63.1 Anemia in chronic kidney disease; T45.515A Adverse effect of anticoagulants, initial encounter; Z87.01 Personal history of pneumonia (recurrent); Z82.49 Family history of ischemic heart disease and other diseases of the circulatory system; Z79.899 Other long term (current) drug therapy; Z90.49 Acquired absence of other specified parts of digestive tract; Y92.89 Other specified places as the place of occurrence of the external cause; Z79.01 Long term (current) use of anticoagulants
CPT/HCPCS: 36415; 36600; 70450-TC; 71045; 74018; 76700-TC; 76770; 80053; 80074; 80197; 81000-TC; 81003; 82550-TC; 82607; 82746; 82803-TC; 82962; 83010; 83540-TC; 83550-TC; 83605; 83615-TC; 83735-TC; 83880; 84100-TC; 84443-TC; 84484; 85007; 85025; 85027; 85379; 85384-TC; 85610-TC; 85730-TC; 86038; 86162; 86886; 86900; 86901; 86920; 87040-TC; 87045-TC; 87046; 87070-TC; 87081; 87177; 87205-TC; 87230-TC; 87497; 89055; 92610-GN; 93005; 93306; 94002; 94003; 94640; 94660; 94760; 96361; 96365; 96368; 97110-GP; 97116-GP; 97530-GP; 99291; 99292; C1751; C9113; G0378; J0692; J0696; J1450; J1720; J1940; J2060; J2250; J2270; J2543; J2704; J3370; J3430; J3475; J3480; J3490; J7030; J7050; J7060; J7507; J7512; J7517; J7613; P9021; P9046; P9059